=== PATIENT | male | born 1935 | race Caucasian/White ===

== ENCOUNTER → 2016-07-08 | Outpatient (CLI) | payer OTHER, MEDICARE ==
--- NOTE | 2016-07-08 16:02 | DX ---
PA and Lateral Chest July 08, 2016 Clinical Indications: Cough and possible aspiration in a 80-year-old male. Comparison: November 21, 2004. Findings: No focal pulmonary consolidation. Minimal basilar opacities are probably atelectasis. Pe ribronchial thickening is identified. There is hyperexpansion seen, with flattening of the hemidiaph ragms noted. A prominent pericardial fat pad is suspected. The heart size and pulmonary vascularity are normal. Pleural surfaces and bony thorax are negative for acute abnormality. Impressions 1. Suspect airways disease. 2. Basilar opacities are probably atelectasis. 3. See above report for additional findings.
== END ==
LOC: BMCIMAGING 14:00
PROVIDERS: ATTEND Internal Medicine
DX: T17.908A Unspecified foreign body in respiratory tract, part unspecified causing other injury, initial encounter (principal); R05 Cough; R91.8 Other nonspecific abnormal finding of lung field

== ENCOUNTER 2018-08-25 17:42 | Inpatient (IN) | payer OTHER, MEDICARE ==
--- NOTE | 2018-08-25 17:56 | EDPHY ---
H & P Time Seen by Provider: 08/25/18 17:48 HPI/ROS: Chief complaint. Fall, decreased level of consciousness, low oxygen saturation HPI. Patient is an 82-year-old male and history is provided by his . She tells me he fell this morning struck his head. She is not sure about loss of consciousness. Since that time he has had decreased level of consciousness. She drove to the emergency department could not get the patient out of the car and it took multiple people to get him out. He was found to have an oxygen saturation of about 70% on room air. He is on normally on oxygen because of pulmonary hypertension. He recently had skin cancer surgery removed on his forehead. She tells me he has not been sick recently. No fever cough. He apparently fell several days ago as well. She says that he was may be clutching his chest in the car on the ride over. No vomiting or diarrhea. No complaint of abdominal pain. ROS 10 systems were reviewed and negative with the exception of the elements mentioned in the history of present illness Past Medical/Surgical History: COPD, pulmonary hypertension, dementia Social History: , nonsmoker, no alcohol Physical Exam: General Appearance: Arousable but non communicative well-developed male moderate distress. Vital signs significant for initial O2 saturation 70%. Temperature 38.4 degrees Eyes: Pupils equal and round no pallor or injection. ENT, no hemotympanum or Rosado sign. No oral pharyngeal or dental trauma. Forehead skin cancer surgery. No infection. Not bleeding Respiratory: There are no retractions, lungs are clear to auscultation. Cardiovascular: Regular rate and rhythm. Gastrointestinal: Abdomen is soft and nontender, no masses, bowel sounds normal. Neurological: Arousable. Moves all extremities. Skin: Warm and dry, no rashes. Musculoskeletal: Possible cervical spine tenderness Extremities symmetrical, full range of motion. Psychiatric: Patient is oriented X 0, there is no agitation. Constitutional: Initial Vital Signs Temperature (C) 38.4 C H 08/25/18 17:50 Heart Rate 72 08/25/18 17:50 Respiratory Rate 18 08/25/18 17:50 Blood Pressure 165/84 H 08/25/18 17:50 O2 Sat (%) 90 L 08/25/18 17:50 O2 Delivery Mode Non-Rebreather Mask O2 (L/minute) 10 Allergies/Adverse Reactions: Penicillins Allergy (Verified 08/25/18 17:57) Home Medications: Medication Instructions Recorded Unobtainable 08/25/18 Medical Decision Making - Diagnostics EKG Interpretation: EKG interpreted by me shows normal sinus rhythm normal axis. Interventricular conduction delay. ST-T depression anterior leads. No ST elevation. Rate 69 No previous EKGs for comparison Imaging Results: Imaging Impressions Chest X-Ray 08/25/18 17:56 Impression: Cardiomegaly with findings compatible with congestive heart failure. Cervical Spine CT 08/25/18 17:57 Impression: 1. No acute abnormality seen about the cervical spine. 2. Anterior cervical fusion from C4 through C6 appears to be intact. 3. Degenerative disk disease lower cervical spine below the fusion. 4. 2-3 mm of anterior subluxation of C7 on T1 secondary to facet hypertrophy.. Findings discussed with Juliocesar Loomis M.D. at 19:06 hour, 08/25/2018. Head CT 08/25/18 17:57 Impression: 1. Moderate atrophy. 2. No hemorrhage, mass effect, or definite acute peripheral infarct. 3. Mild to moderate nonspecific hypodensities in the white matter of bilateral cerebral hemispheres. Differential diagnosis includes microvascular ischemic disease, post-infectious/post-inflammatory sequela, atypical demyelinating disease, or migraine-related sequela. Small white matter lacunar infarcts may also have this appearance. 4. Moderate amount of cerumen right external auditory canal. If symptoms worsen, additional imaging may be necessary. Findings discussed with Juliocesar Loomis M.D. at 19:06 hour, 08/25/2018. Chest x-ray interpreted by me CHF versus pneumonia CT head without contrast interpreted by me and discussed with Dr. Nunes shows no evidence of trauma Cervical spine CT interpreted by me and discussed with Dr. Nunes shows no evidence for trauma Procedures: IV normal saline, monitor, supplemental oxygen Septic workup IV Rocephin and doxycycline ED Course/Re-evaluation: Re-evaluation 7:10 p.m.. Patient is stable. In patient, his , and I discussed imaging and lab results. We discussed treatment plan including recommendation for admission. She expresses understanding and agreement I consulted discussed case with Dr. Callaway, hospitalist, who agrees to the admission Differential Diagnosis: Chest x-ray read as CHF by Radiology. However the patient has a fever and I believe he has pneumonia. He fell and hit his head and has decreased level of consciousness afterwards. I considered closed head injury, intracranial bleeding as well as cervical spine injury. Patient's lactate is normal. No evidence for sepsis - Data Points Laboratory Results: Laboratory Results 08/25/18 18:00 08/25/18 18:00 08/25/18 08/25/18 08/25/18 18:36 18:06 18:00 WBC RBC Hgb Hct MCV MCH MCHC RDW Plt Count MPV Neut % (Auto) Lymph % (Auto) [place] % (Auto) Eos % (Auto) Baso % (Auto) Nucleat RBC Rel Count Absolute Neuts (auto) Absolute Lymphs (auto) Absolute Monos (auto) Absolute Eos (auto) Absolute Basos (auto) Absolute Nucleated RBC Immature Gran % Immature Gran # PT 13.8 SEC SEC (12.0-15.0) INR 1.10 (0.83-1.16) APTT 28.8 SEC SEC (23.0-38.0) VBG Lactic Acid 1.8 mmol/L mmol/L (0.7-2.1) Sodium Potassium Chloride Carbon Dioxide Anion Gap BUN Creatinine Estimated GFR Glucose Calcium Total Bilirubin POC Troponin I 0.00 ng/mL ng/mL (0.00-0.08) NT-Pro-B Natriuret Pep 08/25/18 08/25/18 18:00 18:00 WBC 12.75 10^3/uL H 10^3/uL (3.80-9.50) RBC 6.82 10^6/uL H 10^6/uL (4.40-6.38) Hgb 15.5 g/dL g/dL (13.7-17.5) Hct 53.2 % H % (40.0-51.0) MCV 78.0 fL L fL (81.5-99.8) MCH 22.7 pg L pg (27.9-34.1) MCHC 29.1 g/dL L g/dL (32.4-36.7) RDW 21.9 % H % (11.5-15.2) Plt Count 163 10^3/uL 10^3/uL (150-400) MPV 9.7 fL fL (8.7-11.7) Neut % (Auto) 84.2 % H % (39.3-74.2) Lymph % (Auto) 9.6 % L % (15.0-45.0) [place] % (Auto) 4.9 % % (4.5-13.0) Eos % (Auto) 0.5 % L % (0.6-7.6) Baso % (Auto) 0.4 % % (0.3-1.7) Nucleat RBC Rel Count 0.0 % % (0.0-0.2) Absolute Neuts (auto) 10.73 10^3/uL H 10^3/uL (1.70-6.50) Absolute Lymphs (auto) 1.23 10^3/uL 10^3/uL (1.00-3.00) Absolute Monos (auto) 0.63 10^3/uL 10^3/uL (0.30-0.80) Absolute Eos (auto) 0.06 10^3/uL 10^3/uL (0.03-0.40) Absolute Basos (auto) 0.05 10^3/uL 10^3/uL (0.02-0.10) Absolute Nucleated RBC 0.00 10^3/uL 10^3/uL (0-0.01) Immature Gran % 0.4 % % (0.0-1.1) Immature Gran # 0.05 10^3/uL 10^3/uL (0.00-0.10) PT INR APTT VBG Lactic Acid Sodium 137 mEq/L mEq/L (135-145) Potassium 4.6 mEq/L mEq/L (3.5-5.2) Chloride 101 mEq/L mEq/L (97-110) Carbon Dioxide 24 mEq/l mEq/l (22-31) Anion Gap 12 mEq/L mEq/L (6-14) BUN 30 mg/dL H mg/dL (7-23) Creatinine 0.9 mg/dL mg/dL (0.7-1.3) Estimated GFR > 60 Glucose 136 mg/dL H mg/dL (70-100) Calcium 9.4 mg/dL mg/dL (8.5-10.4) Total Bilirubin 1.1 mg/dL mg/dL (0.1-1.4) POC Troponin I NT-Pro-B Natriuret Pep 908 pg/mL H pg/mL (0-450) Medications Given: Ceftriaxone Sodium/Dextrose (Rocephin 1 Gm (Premix)) 50 mls @ 100 mls/hr IV EDNOW ONE PRN Reason: Protocol Stop: 08/25/18 19:37 Last Admin: 08/25/18 19:14 Dose: 50 mls Discontinued Medications Lorazepam (Ativan Injection) 1 mg IVP ONCE ONE Stop: 08/25/18 18:27 Last Admin: 08/25/18 18:27 Dose: 1 mg Point of Care Test Results: Chemistry 08/25/18 18:06 POC Troponin I 0.00 ng/mL ng/mL (0.00-0.08) Departure - Departure Disposition: [facility] Inpatient Acute Clinical Impression: Pneumonia Qualifiers: Pneumonia type: due to unspecified organism Laterality: bilateral Lung location : lower lobe of lung Qualified Code(s): J18.1 - Lobar pneumonia, unspecified organism Condition: Fair
--- NOTE | 2018-08-25 18:03 | CPEKG ---
Test Reason : OPEN Blood Pressure : / mmHG Vent. Rate : 069 BPM Atrial Rate : 070 BPM P-R Int : 206 ms QRS Dur : 150 ms QT Int : 423 ms P-R-T Axes : 054 152 -28 degrees QTc Int : 454 ms Sinus rhythm Supraventricular bigeminy Nonspecific intraventricular conduction delay Borderline ST depression, anterior leads ST depression V1-V3, suggest recording posterior leads Confirmed by Juliocesar Loomis ([id number]) on 08/25/2018 6:03:07 PM Referred By: Juliocesar Loomis Confirmed By:Juliocesar Loomis
[2018-08-25] MEDS ORDERED: LORazepam 2 MG/ML INJ IVP ONE (18:26)
[2018-08-25 18:31] LABS: PLATELET COUNT 163 10^3/uL (150-400)
[2018-08-25 18:32] LABS: INR 1.1 (0.83-1.16); PROTIME(PATIENT) 13.8 SEC (12.0-15.0)
[2018-08-25] MEDS ORDERED: OXYCODONE/APAP 5/325 TAB PO ONE (19:16)
[2018-08-25] MEDS ORDERED: DOXYCYCLINE INJ 100 MG in NS 250 ML IV ONE (19:30)
[2018-08-25] MEDS ORDERED: ONDANSETRON 4 MG/2 ML VIAL IVP PRN (20:13)
[2018-08-25] MEDS ORDERED: ONDANSETRON DISINTEGRATING 4 MG TAB PO PRN (20:13)
[2018-08-25] MEDS ORDERED: OXYCODONE/APAP 5/325 TAB PO PRN (20:13)
[2018-08-25] MEDS ORDERED: ACETAMINOPHEN 325 MG TAB PO PRN (20:13)
[2018-08-25] MEDS ORDERED: NS 1,000 ML IV SCH (20:15)
--- NOTE | 2018-08-25 20:55 | GHP ---
[f rep st] HISTORY AND PHYSICAL DATE OF ADMISSION: 08/25/2018 HISTORY OF PRESENT ILLNESS: Mr. Busby is an 82-year-old gentleman with history of pulmonary hypert ension and dementia as well as chronic pain on continuous narcotics, who presents with a fall. It so unds like he had a fall on Friday and then a fall again this morning. It sounds like at baseline he does not recognize his of 58 years. He needs some help with his ADLs. She took him to lunch to day. They live in [place]. It is very difficult to get him in and out of the car, but she kriby anderson achieved it, and then he had another fall, so she brought him to the emergency department where he was found to be febrile. It sounds like over the last 5 years, he has had significant decline starting with a cervical spine s urgery during which he had 9 hours of anesthesia and has been on oxygen and not particularly recovere d since. He recently saw his lounge car attendant at [facility] and his pulmonary pressures had decrea sed from the 90s down to the 70s on the medications that he takes. He has not had cough, sputum. His says he is using more Kleenex than usual. He has not had miriam rrhea or rash on his skin. He did recently have a melanoma resected from his forehead with [facility] plastic surgery. REVIEW OF SYSTEMS: Complete 10-point review of systems conducted, negative except as in the HPI. PAST MEDICAL HISTORY: 1. Pulmonary hypertension, sounds like it is primary, on some vasodilators. 2. Dementia with fairly significant impairment. 3. Cervical spine disease. 4. Diabetes. 5. Hyperlipidemia. 6. Chronic narcotic use with dependency, recently taken off OxyContin. 7. Low back pain. ALLERGIES: Penicillin. HOME MEDICATIONS: List is pending at this time. 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 He has been for 58 years . Not an alcohol drinker at this point in time. Does not smoke cigarettes. FAMILY HISTORY: Parents . PHYSICAL EXAM: VITAL SIGNS: Temp 38.4, blood pressure 165/84, pulse 72, breathing 18 times a minute , 90% on 5 L. GENERAL: No acute distress. He is minimally interactive in our evaluation. HEENT: Sclerae anicteric. Oropharynx clear. Mucous membranes are moist. NECK: Supple. There is JVD to t he angle of the jaw. LUNGS: He is poorly compliant with the exam, but shows scattered crackles bila terally without focal areas of decreased breath sounds. HEART: S1, S2 with a thick split S2. ABDOM EN: Soft, nontender, nondistended. LOWER EXTREMITIES: Trace edema bilaterally. Calves are nontend er. SKIN: Without rash. NEUROLOGIC: Nonfocal. LABS: Sodium 137, potassium 4.6, chloride 101, bicarb 24, BUN 30, creatinine 0.9, glucose 136. BNP is 908 with no prior. Point of care troponin is normal. Lactate is 1.8. INR is 1.1. White count 1 2.8, hematocrit 53, platelets are 163,000. Chest x-ray interpreted by me shows bilateral airspace disease, CHF versus viral pneumonia. EKG interpreted by me shows right axis deviation, right bundle branch block pattern. There are ST de pressions across on the precordial leads. This is consistent with pulmonary hypertension. Head CT shows microvascular gliosis. Cervical spine CT shows 2-3 mm anterior subluxation of C7 on T1 secondary to facet hypertrophy. Fusi on is intact. No acute abnormality. I discussed the case with Dr. uJliocesar Loomis. ASSESSMENT/PLAN: 82-year-old gentleman with multiple medical problems including dementia and pulmona ry hypertension, presents with fever, possible pneumonia. 1. Pneumonia. This is probably a viral pneumonia. I have written for a viral respiratory panel. S tart him on ceftriaxone and doxycycline. We will continue oxygen support, have drawn blood cultures. 2. Pulmonary hypertension. Maintain euvolemia. I will give him some IV fluids now. By BUN and cre atinine he is dry. I will restart his medications when they have been reconciled. 3. Dementia. He is on narcotics and he is also on Flexeril. These are not great medicines for some one such as him, but we can continue these as prescribed. 4. Code status. I have suggested that he may benefit from a do not resuscitate. It sounds like the has not really given this time and thought, but is thinking about it now. 5. Leukocytosis, likely secondary viral infection. DISPOSITION: Inpatient status. /[id number]/MODL
[2018-08-25] MEDS ORDERED: CARBOXYMETHYLCELLULOSE 1% 0.4 ML DROPERETTE EACHEYE PRN (22:04)
[2018-08-25] MEDS ORDERED: ZOLPIDEM TARTRATE 5 MG TAB PO PRN (22:04)
[2018-08-25] MEDS ORDERED: ACETAMINOPHEN PO SCH (22:15)
[2018-08-25] MEDS ORDERED: OXYCODONE HCL PO SCH (22:15)
[2018-08-25] MEDS: INSULIN GLARGINE 100 UNITS/ML UNIT SC SCH (23:39)
[2018-08-25] MEDS: PREGABALIN 100 MG CAP PO SCH (23:39)
[2018-08-25] MEDS: MEMANTINE HCL 5 MG TAB PO SCH (23:40)
[2018-08-25] MEDS: oxyCODONE IR 5 MG TAB PO SCH (23:40)
[2018-08-25] MEDS: OXYCODONE/APAP 5/325 TAB PO SCH (23:40)
[2018-08-25] MEDS: DOCUSATE SODIUM 100 MG CAP PO SCH (23:41)
[2018-08-26] MEDS: Olodaterol Hcl [Striverdi Respimat] IH SCH ×2 (00:16→08:51)
[2018-08-26] MEDS: OXYCODONE/APAP 5/325 TAB PO SCH ×4 (04:28→22:39)
[2018-08-26] MEDS: oxyCODONE IR 5 MG TAB PO SCH ×4 (04:29→22:41)
[2018-08-26 05:37] LABS: PLATELET COUNT 128 10^3/uL (150-400)
[2018-08-26] MEDS: BECLOMETHASONE QVAR 80 REDIHALER 120 INH/10.6 GM MDI IH SCH ×2 (08:52→20:32)
[2018-08-26] MEDS: CHOLECALCIFEROL VIT D3 2,000 UNITS TAB/CAP PO SCH (09:53)
[2018-08-26] MEDS: PREGABALIN 100 MG CAP PO SCH ×2 (09:53→22:07)
[2018-08-26] MEDS: MEMANTINE HCL 5 MG TAB PO SCH ×2 (09:53→22:06)
[2018-08-26] MEDS: MULTIVITAMINS 1 EACH TAB PO SCH (09:53)
[2018-08-26] MEDS: OMEGA-3 FATTY ACIDS 1,000 MG CAP PO SCH (09:53)
[2018-08-26] MEDS: TADALAFIL 20 MG TABLET PO SCH (09:54)
[2018-08-26] MEDS: POTASSIUM CL 10 MEQ TAB PO SCH (09:54)
[2018-08-26] MEDS: CYANO/VITAMIN B12 1000 MCG TAB PO SCH (09:54)
[2018-08-26] MEDS: ASPIRIN EC 81 MG TAB PO SCH (09:54)
[2018-08-26] MEDS: PANTOPRAZOLE SODIUM 40 MG TAB PO SCH (09:54)
[2018-08-26] MEDS: DOCUSATE SODIUM 100 MG CAP PO SCH ×2 (09:57→22:05)
[2018-08-26] MEDS: LIDOCAINE 4%/MENTHOL 1% PATCH TD SCH (09:57)
[2018-08-26] MEDS: VITAMIN E ACETATE PO SCH (10:00)
[2018-08-26] MEDS: ENOXAPARIN 40 MG/0.4 ML SYR SC SCH (11:18)
[2018-08-26] MEDS ORDERED: D50W 25 GM/50 ML SYR IVP PRN (11:39)
--- NOTE | 2018-08-26 11:40 | HOSPPROG ---
Hospitalist Progress Note Assessment/Plan: 82 year old male with pmh of pulonary hypertension, advanced dementia, HLD, HTN , low back pain admitted wtih weakness thought to be due to PNA Acute on chronic hypoxemic respiratory failure- uses two liters at home now up to 10 liters to maintain sats. Started on rocephin and doxy for possible PNA, resp PCR panel and blood cultures are NGTD. Procal is equivocal. Did have a mild leukocytosis to 12 on admit that is now down to 10. Exam with no real wheezes or crackles. repeat this morning concerning for possible CHF etiology for hypoxia. -cont abx -obtain echo -oxygen PRN -get records from [facility] -depending on echo may involve Pulmonology Pulmonary HTN- takes opsumit at home along with striverdi. This has been restarted today. Monitor fluid status closely. Dm- on lantus, will add ss and schedule BG checks Dementia- frequent reorientation. Mimimize narcotics and muscle relaxers Chronic pain- cont home meds for now. Low MVC- check iron studies. may be iron deficient. PPX- Lovenox Fluids-taking adequate oral Lytes- WNL Nutrition- regular Subjective: no complaints. Objective: Vital Signs Temp Pulse Resp BP Pulse Ox 36.1 C 65 18 99/56 L 95 08/26/18 11:09 08/26/18 11:09 08/26/18 11:09 08/26/18 11:09 08/26/18 11:09 Microbiology 08/25/18 19:55 Respiratory Panel (PCR) - Final Nasal, Sinus - Swab No Organism Detected By Pcr Laboratory Results 08/26/18 05:00 08/26/18 05:00 08/25/18 08/26/18 08/27/18 05:59 05:59 05:59 Intake Total 954 Balance 954 PT 13.8 SEC (12.0-15.0) 08/25/18 18:00 INR 1.10 (0.83-1.16) 08/25/18 18:00 - Physical Exam Constitutional: no apparent distress, appears nourished, not in pain Eyes: PERRL, anicteric sclera, EOMI Ears, Nose, Mouth, Throat: moist mucous membranes, hearing normal, ears appear normal, no oral mucosal ulcers Cardiovascular: regular rate and rhythym, no murmur, rub, or gallop Respiratory: reduced air movement, inspiratory crackles Gastrointestinal: normoactive bowel sounds, soft, non-tender abdomen, no palpable masses Genitourinary: no bladder fullness, no bladder tenderness, no renal bruits Skin: no rashes or abrasions, no fluctuance, no induration Musculoskeletal: full muscle strength, no muscle tenderness, normal joint ROM Neurologic: AAOx3, sensation intact bilaterally Psychiatric: interacting appropriately, not anxious, not encephalopathic, thought process linear Lymph, Heme, Immunologic: no cervical LAD, no supraclavicular LAD ICD10 Worksheet Patient Problems: Problems Problem Status Onset Pneumonia Acute
[2018-08-26] MEDS: FLUTICASONE NASAL 120 SPRAYS/16 GM MDI EACHNARE SCH (11:42)
--- NOTE | 2018-08-26 13:27 | ECHO ---
[email or web address] [address] [address] Main: [phone] Echocardiography Examination Transthoracic Name: BERE CANNON MR#: [id number] Study Date: 08/26/2018 Study Time: 12:21 PM Date of : 1935 Age: 82 year(s) Height: 177.8 cm (70 in.) Weight: 78.47 kg (173 lb.) BSA: 1.96 m2 Gender: Male Examination: Echo Contrast: Image Quality: Adequate Rhythm: Heart Rate: BP: 99 mmHg/56 mmHg Indication: acute hypoxemia, concern for cardiac etiology Procedure Staff Referring Physician: Sternman: Christine Avila [facility] Reading Physician: Masood Vega MD Requesting Provider: Ordering Physician: Shan Woodward Indication: acute hypoxemia, concern for cardiac etiology Measurements Chambers AV/MV Label Value Normal Value Label Value Normal Value IVSd, 2D 1.3 cm (0.6cm - 1.1cm) AV PGmax 11 mmHg LVDd, 2D 5.6 cm (4.2cm - 5.9cm) AV PGmean 7 mmHg LVDs, 2D 3.3 cm (2.1cm - 4cm) AV Vmax 1.66 m/s LVOT PGmean 1 mmHg CAROL D (continuity eq. 1.4 cm2 LVOT Vmean 0.58 m/s VTI) LVOTd 2 cm (1.9cm - 2.1cm) MV A Vmax 0.78 m/s LVPWd, 2D 1.2 cm (0.6cm - 1cm) MV DT 306 ms RVDd, 2D 3.8 cm (1.9cm - 3.8cm) MV E' lateral 0.09 m/s LA Volume, BP 63 ml (18ml - 58ml) MV E' mean 0.07 m/s LADs, 2D 3.8 cm (3cm - 4cm) MV E' septal 0.05 m/s LAESV index, BP 32.1 ml/m2 MV E Vmax 0.91 m/s RA Area 16.7 cm2 MV E/A 1.17 Additional Vessels MV E/E' lateral 10.4 Label Value Normal Value MV E/E' mean 13 AoAsc 3.1 cm MV E/E' septal 19.5 (0.45 - 1.25) AoRoot, 2D 3.1 cm (1.4cm - 2.6cm) MV PHT 0.09 s IVC 3.2 cm (1.2cm - 2.3cm) MV PHT 91 ms MVA PHT 2.4 cm2 TV/PV Patient: BERE CANNON Study Date: 08/26/2018 Page 1 of 3 12:21 PM Label Value Normal Value RA Pressure 10 mmHg RVSP 66 mmHg TR Pmax 56 mmHg TR Vmax 3.75 m/s PV PGmax 2 mmHg PV Vmax, Caliper 0.73 m/s (0.6m/s - 0.9m/s) Conclusions Overall Conclusions: No pericardial effusion. Ejection fraction 55%. Diastolic dysfunction. Dilated right ventricle with significant pulmonary hypertension. Right ventricular systolic pressure estimated at 66 mm of mercury. Decreased right ventricular systolic function. Moderate tricuspid regurgitation. Mild mitral regurgitation. Aortic valve calcification without significant regurgitation or stenosis. Findings Left Ventricle: Left ventricle is normal in size. The EF is visually estimated to be 55 %. There is mild concentric left ventricular hypertrophy. There are no regional wall motion abnormalities. Grade II Diastolic Dysfunction. Right Ventricle: Dilated right ventricle. Left Atrium: The left atrium is grossly normal. Right Atrium: The right atrium is moderately dilated. Mitral Valve: Mitral valve appears structurally normal. Mild mitral regurgitation. No mitral valve stenosis. There is mild mitral annular calcification. Aortic Valve: Aortic leaflets are structurally normal. Trivial aortic regurgitation is present. There is no aortic stenosis. Aortic leaflets exhibit mild to moderate calcification. Tricuspid Valve: Tricuspid valve leaflets are structurally normal. Moderate tricuspid regurgitation. No tricuspid valve stenosis. Right Ventricular systolic pressure is measured at 66 mmHg. Pulmonary artery pressure is moderately to severely increased. Pulmonic Valve: Pulmonic leaflets are structurally normal. Trivial pulmonic valve regurgitation is present. Aorta: The aortic root size in 2D measures 3.1 cm. The ascending aorta measures 3.1 cm. Aorta Measurements AoRoot, 2D is 3.1 cm. IVC: The inferior vena cava is dilated. Exam Details Procedure Ordered: Echo Procedure Status: Routine study Image Quality: Adequate Facility Location: Cardiac Echo 1 Patient: BERE CANNON Study Date: 08/26/2018 Page 2 of 3 12:21 PM (No Signature Object) Patient: BERE CANNON Study Date: 08/26/2018 Page 3 of 3 12:21 PM [id number]
[2018-08-26] MEDS ORDERED: OLANZapine 10 MG/2 ML VIAL IM ONE (14:52)
[2018-08-26] MEDS ORDERED: LORazepam 2 MG/ML INJ IVP ONE (14:56)
[2018-08-26] MEDS: INSULIN LISPRO 100 UNIT/ML SC SCH ×2 (15:35→17:23)
--- NOTE | 2018-08-26 15:47 | ASMTCMCOM ---
CM Note CM Note Notes: Chart Review for Discharge Planning: Patient is 82 year old male who presented to [facility] ED after falling at home. His Radha of 58 years live in [place]. She drove him to the ED and provided history, she reported he also fell a few days ago. Medical history includes pulmonary hypertension, COPD, chronic O2 use, dementia (signifcant impairment), Cervical Spine Disease, Chronic narcotic use with dependency, Diabetes, Hyperlipidemia. ED assessment: fever, pneumonia. The patient doesn't have history of treatment at [facility]. ASSISTANT [employer] C[employer] MANAGER & PT ordered, currently pending assessment. CM to follow. Date Signed: 08/26/2018 03:44 PM Electronically Signed By:Janie Marroquin
[2018-08-26] MEDS ORDERED: FUROSEMIDE 40 MG/4 ML VIAL IVP ONE (17:04)
[2018-08-26] MEDS: AZITHROMYCIN IV 500 MG in NS 250 ML IV SCH (17:15)
--- NOTE | 2018-08-26 18:27 | PDMN ---
Medical Necessity Medical necessity: Pt meets IP criteria per MD; est los >2 mn for eval/tx of possible viral pneumonia vs CHF w/tachypnea & hypoxia (O2 86% on 6L via NC, requiring 10L via NRB to maintain sats >90%) s/p recent falls; admit for further workup/monitoring, IV abx; comorbid advanced age, dementia, pulmonary htn, diabetes, chronic pain w/narcotic use; per H&P & order 08/25/18
--- NOTE | 2018-08-26 18:28 | GCON ---
[f rep st] CONSULTATION PULMONARY CRITICAL CARE CONSULTATION. DATE OF CONSULTATION: 08/26/2018 REASON FOR CONSULTATION: Pneumonia, acute respiratory failure. HISTORY: The patient is an 82-year-old gentleman with a history of dementia and severe pulmonary hypertension. He has chronic pain and is on chronic narcotics at home. He has fallen several times over the last few days. He was at dinner last night and apparently fell or slumped over. It was difficult to get him up and he was thus brought to the emergency department. In the ED he is found to be somnolent and hypoxemic. Room air saturations initially were approximately 70%. Evaluation initially focused on his fall. Cervical spine CT scan showed no acute abnormality or fracture. The previous cervical fusion was intact. DJD was noted. CT scan of the head showed no acute disease. Atrophy was noted with some white matter ischemic changes as well. Chest x-ray showed increased markings consistent with either pneumonia/ pneumonitis or congestive heart failure. White blood cell count was mildly elevated. He was felt to have pneumonia. He was given ceftriaxone and admitted to a medical-surgical bed. Today, he is transferred to the intensive care unit secondary to increasing oxygen requirements. Oxygen initially on admission was at 5 or 6 L. He required 10 L earlier today and is transferred to the intensive care unit on a 15 L oxy mask. He appears to be in no respiratory distress, however. He is not significantly tachypneic. On a non-rebreather mask oxygen saturations are in the mid 90s. He is not coughing. He appears to deny any chest pain. PAST MEDICAL HISTORY: Remarkable for dementia, depression, low testosterone, gastroesophageal reflux disease, fluid retention on Lasix at 20 mg per day, COPD , PAH on Adcirca and followed at [facility], type 2 diabetes mellitus on metformin and low-dose long-acting insulin, chronic pain and narcotic use, and rhinitis. Multiple outpatient medications are as listed in his MAR. SOCIAL HISTORY: The patient lives in [place]. He is . He is apparently unable to recognize his at this point secondary to his dementia. 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 FAMILY HISTORY: Noncontributory. DRUG ALLERGIES: Penicillins. REVIEW OF SYSTEMS: Unobtainable from the patient. A 10-point review of systems is negative except as noted in the HPI and past medical history. PHYSICAL EXAMINATION: GENERAL: Reveals an elderly gentleman who is currently calm. VITAL SIGNS: Blood pressure is 110/50, heart rate 85 with sinus rhythm on the monitor. Respiratory rate is 20. He is on a non-rebreather mask with saturations in the mid 90s. He is afebrile. HEENT: Remarkable for the non- rebreather mask being in place. Mucous membranes are somewhat dry. Jugular venous pressure is estimated to be approximately 8-10 cm of water pressure. CHEST: Reveals decreased breath sounds bilaterally. The expiratory phase is somewhat prolonged. There are few scattered rales at the bases, right greater than left. There are no consolidative changes. There are no obvious rhonchi but he has a hard time taking deep breaths for me on command. HEART: Regular in rate and rhythm. A systolic murmur is present. No gallop is appreciated. P2 does appear to be increased. ABDOMEN: Soft, nontender. There is no organomegaly. No Delatorre catheter is in place. EXTREMITIES: Remarkable for trace plus edema. There are no cords. Tenderness is difficult to assess. EXTREMITIES: Remarkable for restraining mitts being in place on both hands. He moves all extremities equally. PSYCH: Mentation is difficult to assess. He has little in the way of verbal responses. He will look to voice. IMAGING: Chest x-ray was reviewed on the PACS system. Compared to his study on admission. There are areas of increased interstitial markings, perhaps slightly worse than yesterday. These are more significant on the right and at the left base. The heart size is generous. Possible emphysematous changes are noted in the upper lung zones. LABORATORY: White blood cell count is 10,400, hematocrit 47.6. PT and PTT were normal on admission, lactate was normal. Basic metabolic panel is within normal limits. Procalcitonin is elevated at 0.37. Troponin is negative. BNP was elevated at 908. ASSESSMENT: 1. Presumed pneumonia. This appears to be a community-acquired process. He is being treated with azithromycin and Rocephin. Congestive heart failure/mild pulmonary edema is also possible. 2. Chronic obstructive pulmonary disease/emphysema. The patient does carry this diagnosis and was on inhalers. Bronchopulmonary therapies will be continued. Nebulized bronchodilator treatments will be added. He is not wheezing at this point. Parenteral steroids will not be added at this point in time. 3. Pulmonary hypertension. On Adcirca. Severe by report, with recent reported right ventricular systolic pressures at [facility] in the 70-90 range. 4. Dementia. The patient does have relatively severe dementia. He has been somewhat agitated, confused, and is at great risk to pull out tubes and lines. Restraints will be needed. 5. Diabetes mellitus. Glucoses are currently within normal limits. Long- acting insulin will be continued. Sliding scale insulin will be given. Metformin will be held for now. 6. History of chronic pain. His outpatient oxycodone regimen will be continued. 7. Do not resuscitate per his advanced directives. PLAN AND RECOMMENDATIONS: The patient will be kept in the intensive care unit. Oxygen will be continued. BiPAP support will be given if needed. Arterial blood gas will be checked. Chest x-ray will be followed. Current antibiotics will be continued. DuoNeb will be added to his regimen. His usual inhalers will be continued, but it may be difficult for him to coordinate these currently. Respiratory therapy will help. Lasix will be given 40 mg x1. His usual outpatient medications including a PPI and tadalafil for pulmonary hypertension will be continued. Further benzodiazepines will be avoided if possible. Low-dose morphine can be considered for shortness of breath and agitation. Precedex may be a reasonable drug as well as it does not significantly suppress respiratory status. Further plans and recommendations will be made based on his progress over the next 12-24 hours. /[id number]/MODL MTDD
[2018-08-26] MEDS: IPRATROPIUM/ALBUTEROL 3 ML DEYVIAL IH SCH (20:33)
[2018-08-26] MEDS ORDERED: NS 1,000 ML IV ONE (20:36)
[2018-08-26] MEDS ORDERED: NS BOLUS 1000 ML IV ONE (21:00)
[2018-08-26] MEDS: INSULIN GLARGINE 100 UNITS/ML UNIT SC SCH (22:02)
[2018-08-26] MEDS: ATORVASTATIN CALCIUM 20 MG TAB PO SCH (22:05)
[2018-08-26] MEDS: PATCH REMOVAL 1 EA PATCH TD SCH (22:06)
[2018-08-27] MEDS ORDERED: HALOPERIDOL LACT 5 MG/ML INJ IVP ONE (04:43)
[2018-08-27] MEDS ORDERED: HALOPERIDOL LACT 5 MG/ML INJ ONE (04:45)
[2018-08-27] MEDS: oxyCODONE IR 5 MG TAB PO SCH ×3 (05:06→17:35)
[2018-08-27] MEDS: OXYCODONE/APAP 5/325 TAB PO SCH ×3 (05:06→17:35)
[2018-08-27] MEDS: DEXMEDETOMIDINE HCL 400 MCG in NS 100 ML IV PRN ×5 (05:26→23:48)
[2018-08-27] MEDS: IPRATROPIUM/ALBUTEROL 3 ML DEYVIAL IH SCH ×4 (06:38→19:56)
[2018-08-27 08:17] LABS: PLATELET COUNT 118 10^3/uL (150-400)
[2018-08-27] MEDS: INSULIN LISPRO 100 UNIT/ML SC SCH ×3 (08:25→18:20)
[2018-08-27] MEDS: AZITHROMYCIN IV 500 MG in NS 250 ML IV SCH (09:47)
[2018-08-27] MEDS: BECLOMETHASONE QVAR 80 REDIHALER 120 INH/10.6 GM MDI IH SCH ×2 (11:57→19:56)
[2018-08-27] MEDS: FLUTICASONE NASAL 120 SPRAYS/16 GM MDI EACHNARE SCH (11:57)
[2018-08-27] MEDS: Olodaterol Hcl [Striverdi Respimat] IH SCH (11:59)
[2018-08-27] MEDS: DOCUSATE SODIUM 100 MG CAP PO SCH ×2 (13:21→21:42)
[2018-08-27] MEDS: CYANO/VITAMIN B12 1000 MCG TAB PO SCH (13:21)
[2018-08-27] MEDS: ASPIRIN EC 81 MG TAB PO SCH (13:21)
[2018-08-27] MEDS: LIDOCAINE 4%/MENTHOL 1% PATCH TD SCH (13:21)
[2018-08-27] MEDS: CHOLECALCIFEROL VIT D3 2,000 UNITS TAB/CAP PO SCH (13:21)
[2018-08-27] MEDS: PREGABALIN 100 MG CAP PO SCH ×2 (13:22→21:42)
[2018-08-27] MEDS: TADALAFIL 20 MG TABLET PO SCH (13:22)
[2018-08-27] MEDS: VITAMIN E ACETATE PO SCH (13:22)
[2018-08-27] MEDS: OMEGA-3 FATTY ACIDS 1,000 MG CAP PO SCH (13:23)
[2018-08-27] MEDS: PANTOPRAZOLE SODIUM 40 MG TAB PO SCH (13:23)
[2018-08-27] MEDS: POTASSIUM CL 10 MEQ TAB PO SCH (13:23)
[2018-08-27] MEDS: MEMANTINE HCL 5 MG TAB PO SCH ×2 (13:23→21:41)
[2018-08-27] MEDS: MULTIVITAMINS 1 EACH TAB PO SCH (13:23)
[2018-08-27] MEDS: ENOXAPARIN 40 MG/0.4 ML SYR SC SCH (13:25)
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
--- NOTE | 2018-08-27 15:05 | PDINTPN ---
[facility] Progress Note Assessment/Plan: Assessment: Acute respiratory failure. Stable since admission. On 6 L. Bronchopneumonia cannot be excluded and he is being treated for community-acquired infection. COPD/emphysema: Contributing certainly to the above. On bronchodilator medications. Pulmonary hypertension: Severe, on Adcirca. He is followed at [facility] for this. Recent pressures 70, down from 90 previously by report. On Adcirca. Dementia. Severe. Unable to recognize his of greater than 50 years at this point. On Precedex. Hypotension: Was hypotensive last night. This was associated with the initiation of Precedex. He received several L of fluid. Better now regarding his blood pressures however this may have contributed to increased congestive heart failure picture on x-ray today. Diabetes mellitus: On sliding scale and long-acting insulin. Glucoses are well controlled. DVT prophylaxis: On enoxaparin. GI: On pantoprazole Nutrition: Eating. Disposition: Likely SNF. His was caring for him despite the progressive dementia. She may not be able to do this for much longer. Palliative care consultation requested. Events directives: No cor/DNR Plan: Continue care in the intensive care unit will be maintained. Precedex will be continued for his agitation but will be weaned as much as possible. Avoid benzodiazepines. Can use Haldol if needed. Lasix will be repeated at 20 mg today. We want to avoid over-diuresis in light of his severe pulmonary hypertension. Antibiotics and bronchodilators will be continued. Palliative care consultation tomorrow. Follow laboratory, chest x-ray, clinical status. 35 min of critical care time spent directly with the patient. Discussed with the patient's , hospitalist, RT, nursing, and the ICU multi disciplinary team. Subjective: Restless at times, sleeping at times, nonverbal. eyes closed. Objective: Vital Signs Temp Pulse Resp BP Pulse Ox 37.1 C 68 23 H 137/65 H 90 L 08/27/18 08:00 08/27/18 12:00 08/27/18 12:00 08/27/18 12:00 08/27/18 12:00 Laboratory Results 08/27/18 07:54 08/27/18 07:54 08/26/18 08/27/18 08/28/18 05:59 05:59 05:59 Intake Total 954 7437 Output Total 4080 Balance 954 387 PT 13.8 SEC (12.0-15.0) 08/25/18 18:00 INR 1.10 (0.83-1.16) 08/25/18 18:00 CXR: Increased markings bilaterally. No confluent infiltrates. Large heart. Physical Exam - Physical Exam General Appearance: mild distress, other (Nonverbal, restless at times. Mitts in place) EENT: PERRL/EOMI, other (Nasal cannula in place at 6 L.) Neck: non-tender, other (Jugular venous distention is present), No thyromegaly Respiratory: lungs clear (Anteriorly), decreased breath sounds (At bases), rales (Bibasilar rales are present, left greater than right), No rhonchi, No wheezing Cardiac/Chest: regular rate, rhythm, other (Distant heart tones. Gallop cannot be excluded. P2 appears increased) Abdomen: non-tender, soft, organomegaly (Cannot assess), No normal bowel sounds (Decreased, present) Male Genitalia: other (Delatorre catheter in place, good urine output) Skin: normal color, warm/dry Extremities: pedal edema (Trace +) Neuro/Psych: no motor/sensory deficits (Moves all extremities equally), cognition abnormalities (Unchanged, nonverbal. Restless at times) ICD10 Worksheet Patient Problems: Problems Problem Status Onset Pneumonia Acute
[2018-08-27] MEDS ORDERED: FUROSEMIDE 20 MG/2 ML VIAL IVP ONE (15:14)
--- NOTE | 2018-08-27 15:41 | ASMTCMCOM ---
CM Note CM Note Notes: Pt care discussed in rounds this morning. Pt has been taken care of by . Has history of dementia, recently multiple falls. Palliative Care order was placed and they scheduled with pt's to meet Tomorrow (Friday) at 1:00pm. CM submit referral to Emily as right now the plan will likely be to a SNF in [facility]. If pt ends up going home, [facility] does have an outpatient palliative team pricing coordinator is Renetta. PT ordered pending eval. CM to follow. Plan: TBD Date Signed: 08/27/2018 03:41 PM Electronically Signed By:CEFERINO Bernabe
[2018-08-27] MEDS: HYDROmorphONE/DILAUDID 1 MG/ML INJ IVP PRN (21:32)
[2018-08-27] MEDS: HALOPERIDOL LACT 5 MG/ML INJ IVP PRN (21:32)
[2018-08-27] MEDS: ATORVASTATIN CALCIUM 20 MG TAB PO SCH (21:42)
[2018-08-27] MEDS: PATCH REMOVAL 1 EA PATCH TD SCH (21:42)
[2018-08-27] MEDS: ORAL BALANCE GEL TUBE PO PRN (23:13)
[2018-08-28] MEDS: OXYCODONE/APAP 5/325 TAB PO SCH ×5 (01:09→22:49)
[2018-08-28] MEDS: oxyCODONE IR 5 MG TAB PO SCH ×5 (01:09→22:49)
[2018-08-28] MEDS: HALOPERIDOL LACT 5 MG/ML INJ IVP PRN ×2 (03:13→16:57)
[2018-08-28] MEDS: HYDROmorphONE/DILAUDID 1 MG/ML INJ IVP PRN ×2 (03:14→20:46)
[2018-08-28 04:36] LABS: PLATELET COUNT 140 10^3/uL (150-400)
[2018-08-28] MEDS: IPRATROPIUM/ALBUTEROL 3 ML DEYVIAL IH SCH ×4 (05:38→20:14)
[2018-08-28] MEDS: DEXMEDETOMIDINE HCL 400 MCG in NS 100 ML IV PRN ×4 (05:50→21:22)
[2018-08-28] MEDS: ORAL BALANCE GEL TUBE PO PRN (06:22)
[2018-08-28] MEDS: INSULIN LISPRO 100 UNIT/ML SC SCH ×3 (07:53→18:28)
[2018-08-28] MEDS: AZITHROMYCIN IV 500 MG in NS 250 ML IV SCH (07:58)
[2018-08-28] MEDS: ENOXAPARIN 40 MG/0.4 ML SYR SC SCH (08:53)
[2018-08-28] MEDS: ASPIRIN EC 81 MG TAB PO SCH (09:31)
[2018-08-28] MEDS: DOCUSATE SODIUM 100 MG CAP PO SCH ×2 (09:31→21:19)
[2018-08-28] MEDS: BECLOMETHASONE QVAR 80 REDIHALER 120 INH/10.6 GM MDI IH SCH ×2 (09:31→20:14)
[2018-08-28] MEDS: CYANO/VITAMIN B12 1000 MCG TAB PO SCH (09:31)
[2018-08-28] MEDS: CHOLECALCIFEROL VIT D3 2,000 UNITS TAB/CAP PO SCH (09:31)
[2018-08-28] MEDS: LIDOCAINE 4%/MENTHOL 1% PATCH TD SCH (09:32)
[2018-08-28] MEDS: Olodaterol Hcl [Striverdi Respimat] IH SCH (09:32)
[2018-08-28] MEDS: FLUTICASONE NASAL 120 SPRAYS/16 GM MDI EACHNARE SCH (09:32)
[2018-08-28] MEDS: MULTIVITAMINS 1 EACH TAB PO SCH (09:32)
[2018-08-28] MEDS: MEMANTINE HCL 5 MG TAB PO SCH ×2 (09:32→21:19)
[2018-08-28] MEDS: POTASSIUM CL 10 MEQ TAB PO SCH (09:33)
[2018-08-28] MEDS: PANTOPRAZOLE SODIUM 40 MG TAB PO SCH (09:33)
[2018-08-28] MEDS: TADALAFIL 20 MG TABLET PO SCH (09:33)
[2018-08-28] MEDS: PREGABALIN 100 MG CAP PO SCH ×2 (09:33→21:20)
[2018-08-28] MEDS: OMEGA-3 FATTY ACIDS 1,000 MG CAP PO SCH (09:33)
[2018-08-28] MEDS: VITAMIN E ACETATE PO SCH (09:34)
--- NOTE | 2018-08-28 09:54 | PDINTPN ---
Msw Progress Note Assessment/Plan: Assessment: Acute respiratory failure. Stable since admission. On 4 L. Bronchopneumonia cannot be excluded and he is being treated for community-acquired infection. Chest x-ray shows some improvement. Whether this is pulmonary edema or pneumonitis/pneumonia is difficult to say. COPD/emphysema: Contributing certainly to the above. On bronchodilator medications. Pulmonary hypertension: Severe, on Adcirca and Macitentan. He is followed at [facility] for this. Recent pressures 70, down from 90 previously by report. Dementia. Severe. Unable to recognize his of greater than 50 years at this point. Agitation: Secondary to dementia and acute illness. On relatively high-dose Precedex which is not a long-term solution. Increased agitation may be also secondary to NPO status currently and lack of adequate opiates/opiate withdrawal ? Hypotension: Secondary to Precedex initially. Better now. Diabetes mellitus: On sliding scale and long-acting insulin. Glucoses are well controlled. DVT prophylaxis: On enoxaparin. GI: On pantoprazole Nutrition: NPO secondary to sedation associated with Precedex. Will need a NG tube for oral medications at this time. Disposition: Likely SNF. His was caring for him despite the progressive dementia. She may not be able to do this for much longer. Palliative care consultation requested. Events directives: No cor/DNR Plan: Continued care in the intensive care unit will be maintained. Precedex will be continued for now but weaned throughout the day. Avoid benzodiazepines. P.r.n. Haldol can be continued. A NG tube will be placed today for his oral medications. Seroquel will be added. Risperdal or Zyprexa could be considered. Dilaudid will be given scheduled for a short period of time until oral narcotics can be re-added. Lasix will be repeated at 20 mg today. We want to avoid over-diuresis in light of his severe pulmonary hypertension. Antibiotics and bronchodilators will be continued. Palliative care consultation tomorrow. I would be happy to join if needed. Follow laboratory, chest x-ray, clinical status. 40 min of critical care time spent directly with the patient. Discussed with the patient's , hospitalist, nursing, and the ICU multi disciplinary team. Subjective: On high-dose Precedex, sedated, arouses weakly. Was following commands. Largely nonverbal Objective: Vital Signs Temp Pulse Resp BP Pulse Ox 37.0 C 79 12 111/78 86 L 08/28/18 08:00 08/28/18 07:45 08/28/18 07:45 08/28/18 07:45 08/28/18 07:45 Laboratory Results 08/28/18 04:15 08/28/18 04:15 08/27/18 08/28/18 08/29/18 05:59 05:59 05:59 Intake Total 2637 816 Output Total 2250 2450 Balance 387 -1634 PT 13.8 SEC (12.0-15.0) 08/25/18 18:00 INR 1.10 (0.83-1.16) 08/25/18 18:00 Laboratory Tests 08/28/18 04:15 Calcium 8.4 L Magnesium 1.7 Total Bilirubin 0.9 AST 20 ALT 19 L Total Protein 5.8 L CXR: Patchy bilateral infiltrates somewhat improved. Large cardiac silhouette. Physical Exam - Physical Exam General Appearance: other (Sedated, moves all extremities with stimulation, groans. Not opening eyes for me, not verbal.) EENT: PERRL/EOMI, other Neck: normal inspection Respiratory: lungs clear (Anteriorly), decreased breath sounds (At bases), rales (Scattered rales present posterior bases), No rhonchi, No wheezing Cardiac/Chest: regular rate, rhythm, No gallop Abdomen: normal bowel sounds, non-tender, soft Male Genitalia: other (Delatorre catheter in place, good urine output. Output greater than input.) Skin: normal color, warm/dry Extremities: No pedal edema Neuro/Psych: no motor/sensory deficits (Moves all extremities), cognition abnormalities (Difficult to assess secondary to Precedex sedation.) ICD10 Worksheet Patient Problems: Problems Problem Status Onset Pneumonia Acute
[2018-08-28] MEDS ORDERED: FUROSEMIDE 20 MG/2 ML VIAL IVP ONE (10:39)
[2018-08-28] MEDS ORDERED: QUEtiapine FUMARATE 25 MG TAB PO ONE (10:51)
[2018-08-28] MEDS: HYDROmorphONE/DILAUDID 1 MG/ML INJ IVP SCH ×4 (11:19→22:49)
[2018-08-28] MEDS ORDERED: LIDOCAINE 2% JELLY 20 ML (UROJECT) ONE (12:23)
--- NOTE | 2018-08-28 16:17 | ASMTCMCOM ---
CM Note CM Note Notes: CM, Palliaitve Care team, Caroline gomez [facility], and Dr. Vidal met with pt's at length to discuss care goals and options for next steps. Pt's Mechelle spoke at length of what an incredible support she has been for her over the years and how in the past five years as his dementia has progresses she has become a 24/7 caregiver without ever being able to leave the house, even to get the newspaper without him worrying. Pat reports she feels like "My Timoteo" has left many years ago and that her role now is primary caregiver. Team provided educaiton about choices of treatment moving forward and next steps appear to be that Pat will touch base with her primary care doctor and think about options. MD attempted to insert feeding tube today through his nose without success. Please see family meeting note in notes section for more detailed information. CM to continue to follow to support pt and Pat throughout hospitalization and as she faces these difficult decisions. At this time therapy is not involved. It is possible pt would SNF. They do have a son that lives in [place]. CM to follow. Plan: continue to support Pt's Mechelle. Possible revisit of choices in the next few days as pt progesses. Possible offer another family meeting if she wants. Date Signed: 08/28/2018 04:17 PM Electronically Signed By:CEFERINO Bernabe
--- NOTE | 2018-08-28 17:20 | HOSPPROG ---
Hospitalist Progress Note Assessment/Plan: 82 year old male with pmh of pulonary hypertension, advanced dementia, HLD, HTN , low back pain admitted wt weakness thought to be due to PNA Acute on chronic hypoxemic respiratory failure- uses two liters at home now up to 10 liters to maintain sats. Started on rocephin and doxy for possible PNA, resp PCR panel and blood cultures are NGTD. Procal is equivocal. Did have a mild leukocytosis to 12 on admit that is now normalized. Exam with no real wheezes or crackles. repeat cxr this morning concerning for possible CHF etiology for hypoxia. -cont abx -oxygen PRN -lasix redosed today -caution with fluids Pulmonary HTN- takes opsumit at home along with striverdi. This has been restarted but has been held as he is unable to take oral medications. Monitor fluid status closely. Dm- on lantus which has been held while he is confused and not taking PO. will add ss and schedule BG checks Dementia- frequent reorientation. Mimimize narcotics and muscle relaxers. started on precedex due to delirium -minimize prededex -if able to place NG would consider seroquel -two days now without PO, failed attempt to place NG today. Chronic pain- hold home meds for now. PPX- Lovenox Fluids-cautious with fluids. Lytes- WNL Nutrition- NPO for now Cor- change to DNR/DNI Dispo- remain in ICU with acute hypoxemic respiratory failure, on precedex. High risk of mortality given comorbidities. I hjad a long discussion with today and she would like to continue with current plan for now. Does not appear ready to consider comfort care as he was fairly functional prior to this admission I spent 40 minutes of critical care time on the management of this patient. Subjective: sedated. responds minimally to stimuli Objective: Vital Signs Temp Pulse Resp BP Pulse Ox 36.9 C 74 20 144/77 H 94 08/28/18 12:48 08/28/18 16:20 08/28/18 16:20 08/28/18 15:36 08/28/18 16:20 Laboratory Results 08/28/18 04:15 08/28/18 04:15 08/27/18 08/28/18 08/29/18 05:59 05:59 05:59 Intake Total 2637 816 Output Total 2250 8530 1150 Balance 387 -1634 -1150 PT 13.8 SEC (12.0-15.0) 08/25/18 18:00 INR 1.10 (0.83-1.16) 08/25/18 18:00 - Physical Exam Constitutional: no apparent distress Eyes: PERRL Ears, Nose, Mouth, Throat: moist mucous membranes Cardiovascular: regular rate and rhythym Respiratory: reduced air movement, inspiratory crackles Gastrointestinal: normoactive bowel sounds Genitourinary: corona in urethra Skin: normal color Musculoskeletal: generalized weakness Neurologic: other (sedated and minimally responsive) Psychiatric: encephalopathic Lymph, Heme, Immunologic: no cervical LAD ICD10 Worksheet Patient Problems: Problems Problem Status Onset Pneumonia Acute
[2018-08-28] MEDS: ATORVASTATIN CALCIUM 20 MG TAB PO SCH (21:19)
[2018-08-28] MEDS: PATCH REMOVAL 1 EA PATCH TD SCH (21:20)
[2018-08-29] MEDS: DEXMEDETOMIDINE HCL 400 MCG in NS 100 ML IV PRN ×5 (00:40→21:40)
[2018-08-29] MEDS: HALOPERIDOL LACT 5 MG/ML INJ IVP PRN (01:36)
[2018-08-29] MEDS: HYDROmorphONE/DILAUDID 1 MG/ML INJ IVP PRN ×2 (01:36→12:44)
[2018-08-29] MEDS: HYDROmorphONE/DILAUDID 1 MG/ML INJ IVP SCH ×3 (03:33→11:45)
[2018-08-29] MEDS: oxyCODONE IR 5 MG TAB PO SCH ×2 (05:09→12:46)
[2018-08-29] MEDS: OXYCODONE/APAP 5/325 TAB PO SCH ×2 (05:10→12:46)
[2018-08-29] MEDS: IPRATROPIUM/ALBUTEROL 3 ML DEYVIAL IH SCH ×4 (05:19→20:35)
[2018-08-29 06:12] LABS: PLATELET COUNT 155 10^3/uL (150-400)
[2018-08-29] MEDS: BECLOMETHASONE QVAR 80 REDIHALER 120 INH/10.6 GM MDI IH SCH (07:31)
[2018-08-29] MEDS: CHOLECALCIFEROL VIT D3 2,000 UNITS TAB/CAP PO SCH (07:31)
[2018-08-29] MEDS: ASPIRIN EC 81 MG TAB PO SCH (07:31)
[2018-08-29] MEDS: CYANO/VITAMIN B12 1000 MCG TAB PO SCH (07:31)
[2018-08-29] MEDS: DOCUSATE SODIUM 100 MG CAP PO SCH (07:32)
[2018-08-29] MEDS: MEMANTINE HCL 5 MG TAB PO SCH (07:33)
[2018-08-29] MEDS: OMEGA-3 FATTY ACIDS 1,000 MG CAP PO SCH (07:33)
[2018-08-29] MEDS: MULTIVITAMINS 1 EACH TAB PO SCH (07:33)
[2018-08-29] MEDS: VITAMIN E ACETATE PO SCH (07:34)
[2018-08-29] MEDS: POTASSIUM CL 10 MEQ TAB PO SCH (07:34)
[2018-08-29] MEDS: TADALAFIL 20 MG TABLET PO SCH (07:34)
[2018-08-29] MEDS: PREGABALIN 100 MG CAP PO SCH (07:34)
[2018-08-29] MEDS: PANTOPRAZOLE SODIUM 40 MG TAB PO SCH (07:34)
[2018-08-29] MEDS: INSULIN LISPRO 100 UNIT/ML SC SCH ×3 (08:54→23:26)
[2018-08-29] MEDS: ENOXAPARIN 40 MG/0.4 ML SYR SC SCH (08:54)
[2018-08-29] MEDS ORDERED: FUROSEMIDE 40 MG/4 ML VIAL IVP ONE (09:05)
[2018-08-29] MEDS ORDERED: LIDOCAINE 2% JELLY 20 ML (UROJECT) ONE (09:16)
[2018-08-29] MEDS: AZITHROMYCIN IV 500 MG in NS 250 ML IV SCH (09:32)
--- NOTE | 2018-08-29 10:16 | HOSPPROG ---
Hospitalist Progress Note Assessment/Plan: * acute hypoxemic resp failure * acute R side CHF * metabolic encephalopathy, acute - requiring ongoing precedex due to agitation and inability to cooperate w care * chronic pulm HTN * diabetes * dementia * chronic pain * continue to attempt to get "oral" medicines in but will try to place NG tube again; see if we can get away from precedex Objective: Vital Signs Temp Pulse Resp BP Pulse Ox 36.6 C 66 25 H 154/76 H 93 08/29/18 07:59 08/29/18 07:59 08/29/18 07:59 08/29/18 07:59 08/29/18 07:59 Laboratory Results 08/29/18 06:00 08/29/18 06:00 08/28/18 08/29/18 08/30/18 06:59 06:59 06:59 Intake Total 816 873 Output Total 3920 1775 Balance -1634 -902 PT 13.8 SEC (12.0-15.0) 08/25/18 18:00 INR 1.10 (0.83-1.16) 08/25/18 18:00 ICD10 Worksheet Patient Problems: Problems Problem Status Onset Pneumonia Acute
[2018-08-29] MEDS: LIDOCAINE 4%/MENTHOL 1% PATCH TD SCH (10:23)
[2018-08-29] MEDS: FLUTICASONE NASAL 120 SPRAYS/16 GM MDI EACHNARE SCH (10:24)
[2018-08-29] MEDS ORDERED: MIDAZOLAM 2 MG/2 ML VIAL IVP ONE (11:46)
[2018-08-29] MEDS ORDERED: MIDAZOLAM 2 MG/2 ML VIAL ONE (11:47)
[2018-08-29] MEDS: ERTAPENEM 1 GM in NS 100 ML IV SCH (12:46)
[2018-08-29] MEDS ORDERED: QUEtiapine FUMARATE 100 MG TAB PO ONE (12:49)
[2018-08-29] MEDS ORDERED: QUEtiapine FUMARATE 100 MG TAB TUBE ONE (13:00)
--- NOTE | 2018-08-29 13:07 | PDINTPN ---
Laboratory Specialist Progress Note Assessment/Plan: Assessment: 82-year-old with severe underlying dementia and pulmonary artery hypertension admitted after 08/25 acute AMS/collapse in a restaurant. Acute respiratory failure. Present on admission. Has had increasing oxygen requirements over the last 24-48 hours. Bronchopneumonia cannot be excluded and he has been treated for community-acquired infection since admission, however aspiration could not be excluded. Chest x-ray shows increased bilateral diffuse infiltrates today most consistent with pulmonary edema however diffuse pneumonitis from aspiration cannot be excluded. He is at risk for aspiration. Has a very poor cough and attempts at NG placements ended up in airways yesterday. COPD/emphysema: Contributing certainly to the above. On bronchodilator medications. Pulmonary hypertension: Severe, on Adcirca and Macitentan. He is [facility] for [facility]. Recent pressures 70, down from 90 previously by report. 66 with echo done here. Dementia. Severe, progressive over the last 5 years. Unable to recognize his of greater than 50 years at this point. Agitation: Secondary to dementia and acute illness. On relatively high-dose Precedex which is not a long-term solution. Increased agitation may be also secondary to NPO status currently and lack of adequate opiates/opiate withdrawal ? An NG tube could not be placed yesterday and will be hopefully place today. Hypotension: Secondary to Precedex initially. Better now. Diabetes mellitus: On sliding scale and long-acting insulin. Glucoses are well controlled. DVT prophylaxis: On enoxaparin. GI: On pantoprazole Nutrition: NPO secondary to sedation associated with Precedex. NG tube placement will be re-attempted today.. Disposition: Likely SNF. His was caring for him despite the progressive dementia. She may not be able to do at least temporarily after discharge. Palliative care consultation was done 08/28. Events directives: No cor/DNR/DNI. Plan: Continued care in the intensive care unit will be maintained. Precedex will be continued for now but weaned again today. Avoid benzodiazepines. P.r.n. Haldol can be continued. A NG tube will hopefully be placed today. Seroquel will be added. Risperdal or Zyprexa could be considered. Dilaudid will be given scheduled for a short period of time until oral narcotics can be re-added. Lasix will be repeated at 40 mg today. We want to avoid over- diuresis in light of his severe pulmonary hypertension. Antibiotic coverage will be switched to ertapenem for possible aspiration. Bronchodilators will be continued. Follow laboratory, chest x-ray, clinical status. 30 min of critical care time spent initial with the patient. Discussed with, hospitalist, nursing, and the ICU multi disciplinary team. An additional 20 min of my time was spent directly with the patient placing an NG tube. Initial attempts were difficult and the NG probably ended up in his airways. Eventually, we were able to successfully place a tube into his stomach. I had a long conversation with the patient's , approximately 30 min. We discussed current care, SNF if he gets through this, the need for an NG tube today to provide him with oral medications, continuing care verses going to comfort care and allowing him to pass away, etc. The patient's would like to continue the present level of care at this time, at least for the next several days, in order to get better clarification regarding his course and prognosis with this admission. Subjective: Agitation persists. On higher doses of Precedex overnight, up to 1.5. Back down to about 1 this morning. He will moderate occasionally appropriate responses. Objective: Vital Signs Temp Pulse Resp BP Pulse Ox 36.4 C 60 24 H 101/60 90 L 08/29/18 12:09 08/29/18 12:09 08/29/18 12:09 08/29/18 12:09 08/29/18 12:09 Laboratory Results 08/29/18 06:00 08/29/18 06:00 08/28/18 08/29/18 08/30/18 05:59 05:59 05:59 Intake Total 816 873 Output Total 2450 1775 Balance -1634 -902 PT 13.8 SEC (12.0-15.0) 08/25/18 18:00 INR 1.10 (0.83-1.16) 08/25/18 18:00 Laboratory Tests 08/29/18 06:00 Calcium 8.4 L CXR: Increased diffuse pulmonary infiltrates most consistent with pulmonary edema. Cannot rule out aspiration pneumonitis. Recent cardiac echo showed estimated right ventricular systolic pressures to be 66. Left ventricular ejection fraction was 55. Diastolic dysfunction present. Physical Exam - Physical Exam General Appearance: mild distress (At times, waxes and wanes), other (On a OxyMask. Sedated, in restraints) EENT: PERRL/EOMI, ET tube (OxyMask in place) Neck: normal inspection (No obvious JVD) Respiratory: decreased breath sounds (Bilaterally), rales (Few nonspecific rales at the posterior bases), rhonchi (Coarse breath sounds, rhonchi with cough ), No wheezing Cardiac/Chest: regular rate, rhythm (Is in the 60s. Soft systolic murmur present, no gallop. P2 increased) Abdomen: normal bowel sounds, non-tender, soft Male Genitalia: other (Delatorre catheter in place. Good urine output over the last 2 days.) Skin: normal color, warm/dry Extremities: No pedal edema Neuro/Psych: no motor/sensory deficits (Moves all extremities equally), cognition abnormalities (No change, dementia, agitation and combativeness at times.) ICD10 Worksheet Patient Problems: Problems Problem Status Onset Pneumonia Acute
[2018-08-29] MEDS ORDERED: ACETAMINOPHEN 325 MG TAB TUBE PRN (14:00)
[2018-08-29] MEDS ORDERED: ONDANSETRON DISINTEGRATING 4 MG TAB TUBE PRN (14:00)
[2018-08-29] MEDS ORDERED: OXYCODONE/APAP 5/325 TAB TUBE PRN (14:00)
[2018-08-29] MEDS: oxyCODONE IR 5 MG TAB TUBE SCH ×3 (14:30→21:21)
[2018-08-29] MEDS: OXYCODONE/APAP 5/325 TAB TUBE SCH ×3 (14:30→21:21)
--- NOTE | 2018-08-29 16:38 | HOSPPROG ---
Hospitalist Progress Note Assessment/Plan: DIAGNOSES: * acute hypoxemic resp failure * Severe chronic pulmonary hypertension 70s to 90s, on Adcirca and Macitentan * acute R side CHF * COPD/emphysema * metabolic encephalopathy, acute - requiring ongoing precedex due to agitation and inability to cooperate w care * chronic pulm HTN * diabetes * Gait instability, falls at home * dementia * chronic pain on chronic daily narcotic use PLANS: * Continue ICU care * continue to attempt to get "oral" medicines in but will need to try to place NG tube again; see if we can get away from precedex * Continue current respiratory therapies otherwise * Continue ertapenem * Continue IV diuresis * Continue current pain medicines * Follow sugars closely * DVT prophylaxis * Ongoing discussions with regarding end of life management, care decisions Seen by me on hospitalist rounds as well as multidisciplinary rounds I reviewed withDr. Angel Vidal SUBJECTIVE: Patient is sleeping, does not arouse, still on some sedation, unable to directly assess symptoms I discussed with his is at been at the bedside all day, he has seem to be relatively common relaxed all told, she is not aware of any new discomforts OBJECTIVE Vitals reviewed: Still tachypneic, intermittent mild hypertension, 13-15 L OxyMask, no fever Ointment Mill Tender, my review: Sinus Exam: Poorly arousable, still on sedation skin warm dry somewhat pale resps not labored lungs somewhat diminished but otherwise clear BSs heart regular abd soft nondistended, does not appear tender, bowel sounds present limbs warm, no edema Nasogastric tube is now in place and properly secured iv site ok Lab data: Sugars in good range CBC and metabolic panel remains stable Imaging: I reviewed images from today's chest x-ray which shows severe diffuse interstitial abnormalities I reviewed images from today's abdominal x-ray which shows new nasogastric feeding tube with tip located sufficiently within the gastric lumen for E beginning use Objective: Vital Signs Temp Pulse Resp BP Pulse Ox 36.4 C 82 21 H 100/63 90 L 08/29/18 12:09 08/29/18 16:12 08/29/18 16:12 08/29/18 16:12 08/29/18 16:12 Laboratory Results 08/29/18 06:00 08/29/18 06:00 08/28/18 08/29/18 08/30/18 06:59 06:59 06:59 Intake Total 816 873 Output Total 2450 1775 1500 Balance -1634 -902 -1500 PT 13.8 SEC (12.0-15.0) 08/25/18 18:00 INR 1.10 (0.83-1.16) 08/25/18 18:00 - Time Spent With Patient Time Spent with Patient: greater than 35 minutes Time Spent with Patient: Greater than 35 minutes spent on this patients care, greater than 50% of time spent counseling, educating, and coordinating care regarding the above mentioned plan. ICD10 Worksheet Patient Problems: Problems Problem Status Onset Pneumonia Acute
[2018-08-29] MEDS: LANSOPRAZOLE SUSP 30MG/10ML UDSYR (Adult) TUBE SCH (16:44)
[2018-08-29] MEDS: PREGABALIN 100 MG CAP TUBE SCH (21:21)
[2018-08-29] MEDS: ATORVASTATIN CALCIUM 20 MG TAB TUBE SCH (21:22)
[2018-08-29] MEDS: MEMANTINE HCL 5 MG TAB TUBE SCH (21:22)
[2018-08-30] MEDS: oxyCODONE IR 5 MG TAB TUBE SCH ×4 (01:44→20:14)
[2018-08-30] MEDS: OXYCODONE/APAP 5/325 TAB TUBE SCH ×4 (01:45→20:14)
[2018-08-30 05:25] LABS: PLATELET COUNT 133 10^3/uL (150-400)
[2018-08-30] MEDS: IPRATROPIUM/ALBUTEROL 3 ML DEYVIAL IH SCH ×2 (05:25→10:36)
[2018-08-30] MEDS: DEXMEDETOMIDINE HCL 400 MCG in NS 100 ML IV PRN (05:43)
[2018-08-30] MEDS: PATCH REMOVAL 1 EA PATCH TD SCH ×3 (06:17→20:17)
[2018-08-30] MEDS: INSULIN LISPRO 100 UNIT/ML SC SCH ×3 (07:57→17:34)
[2018-08-30] MEDS: PREGABALIN 100 MG CAP TUBE SCH ×2 (08:05→20:14)
[2018-08-30] MEDS: MEMANTINE HCL 5 MG TAB TUBE SCH ×2 (08:05→20:14)
[2018-08-30] MEDS: ASPIRIN 81 MG CHEWABLE TAB TUBE SCH (08:05)
[2018-08-30] MEDS: CHOLECALCIFEROL VIT D3 2,000 UNITS TAB/CAP TUBE SCH (08:05)
[2018-08-30] MEDS: CYANO/VITAMIN B12 1000 MCG TAB TUBE SCH (08:05)
[2018-08-30] MEDS: POTASSIUM CL 20 MEQ/15 ML UDCUP TUBE SCH (08:05)
[2018-08-30] MEDS: LANSOPRAZOLE SUSP 30MG/10ML UDSYR (Adult) TUBE SCH (08:06)
[2018-08-30] MEDS: LIDOCAINE 4%/MENTHOL 1% PATCH TD SCH (08:06)
[2018-08-30] MEDS: ENOXAPARIN 40 MG/0.4 ML SYR SC SCH (08:06)
[2018-08-30] MEDS: TADALAFIL 20 MG TABLET TUBE SCH (08:36)
[2018-08-30] MEDS: FLUTICASONE NASAL 120 SPRAYS/16 GM MDI EACHNARE SCH (10:11)
[2018-08-30] MEDS: ERTAPENEM 1 GM in NS 100 ML IV SCH (10:11)
[2018-08-30] MEDS ORDERED: FUROSEMIDE 40 MG/4 ML VIAL IVP ONE (12:15)
--- NOTE | 2018-08-30 12:22 | PDINTPN ---
Overedge Sewer Progress Note Assessment/Plan: Assessment: 82-year-old with severe underlying dementia and pulmonary artery hypertension admitted 08/25 after acute AMS/collapse in a restaurant. Acute respiratory failure. Bronchopneumonia felt to be present on admission and he has been treated for community-acquired infection since admission. Has had increasing oxygen requirements after doing well for initial few days. Aspiration could not be excluded. Chest x-ray show increased bilateral diffuse infiltrates today consistent with pulmonary edema verses diffuse pneumonitis. Has a very poor cough reflex and attempts at NG placements ended up in airways transiently. He is at risk for aspiration, but was eating and swallowing without problems prior to decompensating. COPD/emphysema: Contributing certainly to the above. On bronchodilator medications. Pulmonary hypertension: Severe, on Adcirca and Macitentan. He is followed at [facility] for this. Recent pressures 70, down from 90 previously by report. 66 with echo done here. Dementia. Severe, progressive over the last 5 years. Unable to recognize his of greater than 50 years at this point. Agitation: Secondary to dementia and acute illness. On relatively high-dose Precedex which is not a long-term solution. Increased agitation may be also secondary to NPO status currently and lack of adequate opiates/opiate withdrawal ? An NG tube could not be placed yesterday and will be hopefully place today. Hypotension: Secondary to Precedex initially. Better now. Diabetes mellitus: On sliding scale and long-acting insulin. Glucoses are well controlled. DVT prophylaxis: On enoxaparin. GI: On pantoprazole Nutrition: NPO secondary to sedation associated with Precedex. NG tube placement will be re-attempted today.. Disposition: Likely SNF. His was caring for him despite the progressive dementia. She may not be able to do at least temporarily after discharge. Palliative care consultation was done 08/28. Events directives: No cor/DNR/DNI. Plan: Continued care in the intensive care unit will be maintained. Precedex will be weaned as he is now getting oral medications via his NG. Avoid benzodiazepines. P.r.n. Haldol can be continued. Continue Seroquel. Risperdal or Zyprexa could be considered. Continue his usual oral narcotics via NG. Lasix will be repeated at 40 mg today. We want to avoid over-diuresis in light of his severe pulmonary hypertension. Continue ertapenem for possible aspiration. Bronchodilators will be continued. Assess swallow today as he wakes up more. Follow laboratory, chest x-ray, clinical status. 35 min of critical care time spent with the patient. Discussed with the patient 's , hospitalist, nursing, and the ICU multi disciplinary team. Subjective: Calmer today. On decreasing Precedex. Able to make some simple responses. Objective: Vital Signs Temp Pulse Resp BP Pulse Ox 37.2 C 99 23 H 134/61 H 91 L 08/30/18 11:55 08/30/18 11:55 08/30/18 11:55 08/30/18 11:55 08/30/18 11:55 Laboratory Results 08/30/18 05:03 08/30/18 05:03 08/29/18 08/30/18 08/31/18 05:59 05:59 05:59 Intake Total 873 Output Total 1775 1750 200 Balance -902 -1750 -200 PT 13.8 SEC (12.0-15.0) 08/25/18 18:00 INR 1.10 (0.83-1.16) 08/25/18 18:00 Laboratory Tests 08/30/18 05:03 Calcium 8.4 L Total Bilirubin 0.7 ALT 30 Alkaline Phosphatase 48 Albumin 2.9 L CXR: Unchanged. Diffuse bilateral infiltrates persist consistent with pulmonary edema and or pneumonitis. Physical Exam - Physical Exam General Appearance: mild distress (With restlessness and agitation at times), other (Somnolent/sedated, but less so. Easily arousable, responds) EENT: PERRL/EOMI, other (OxyMask in place at 10 L) Neck: normal inspection (Jugular venous pressure increased) Respiratory: decreased breath sounds (Decreased breath sounds and air exchange bilaterally. 1 take deep breaths for me.), rales (Rales at bases), No rhonchi ( No oralia rhonchi but coarse breath sounds, some central congestion), No wheezing Cardiac/Chest: regular rate, rhythm, systolic murmur, No gallop Abdomen: normal bowel sounds, non-tender, soft Male Genitalia: other (Catheter in place. Good urine output over the last several days: Output greater than input) Skin: normal color, warm/dry Extremities: pedal edema (Trace +) Neuro/Psych: no motor/sensory deficits (Moves all extremities equally), cognition abnormalities (Improved agitation. Severe dementia) ICD10 Worksheet Patient Problems: Problems Problem Status Onset Pneumonia Acute
--- NOTE | 2018-08-30 15:12 | HOSPPROG ---
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 with recent CT at [facility] showing interstitial changes * metabolic encephalopathy, acute - requiring ongoing precedex due to agitation and inability to cooperate w care * diabetes * Gait instability, falls at home * dementia * chronic pain on chronic daily narcotic use PLANS: * Continue ICU care * continue to attempt to get "oral" medicines in via NG tube * Attempt to wean from Precedex * Continue current respiratory therapies otherwise * Continue ertapenem empiric therapy * Continue IV diuresis * Continue current pain medicines * Follow sugars closely * DVT prophylaxis * Ongoing discussions with regarding end of life management, care decisions , currently DNR but wanting aggressive management at this time Seen by me on hospitalist rounds as well as multidisciplinary rounds I reviewed with Dr. Angel Vidal SUBJECTIVE: Patient is sleeping, does not arouse, still on some sedation, unable to directly assess symptoms I discussed with his is at been at the bedside all day, he has seem to be relatively common relaxed all told, she is not aware of any new discomforts OBJECTIVE Vitals reviewed: T 37.7 degrees this morning highest temperature in several days; still intermittent tachypnea, stable blood pressure and pulse Excel Analyst, my review: Sinus Exam: Poorly arousable, still on sedation skin warm dry somewhat pale resps not labored lungs somewhat diminished but otherwise clear BSs heart regular abd soft nondistended, does not appear tender, bowel sounds present limbs warm, no edema Nasogastric tube is now in place and properly secured iv site ok Lab data: Sugars in good range CBC and metabolic panel remains stable Imaging: I reviewed images from today's chest x-ray which shows severe diffuse interstitial abnormalities I reviewed images from today's abdominal x-ray which shows new nasogastric feeding tube with tip located sufficiently within the gastric lumen for E beginning use Objective: Vital Signs Temp Pulse Resp BP Pulse Ox 37.2 C 99 23 H 134/61 H 91 L 08/30/18 11:55 08/30/18 11:55 08/30/18 11:55 08/30/18 11:55 08/30/18 11:55 Laboratory Results 08/30/18 05:03 08/30/18 05:03 08/29/18 08/30/18 08/31/18 06:59 06:59 06:59 Intake Total 873 Output Total 1775 1750 700 Balance -902 -1750 -700 PT 13.8 SEC (12.0-15.0) 08/25/18 18:00 INR 1.10 (0.83-1.16) 08/25/18 18:00 ICD10 Worksheet Patient Problems: Problems Problem Status Onset Pneumonia Acute
[2018-08-30] MEDS ORDERED: IPRATROPIUM BROMIDE 0.5 MG/2.5 ML DEYVIAL IH PRN (15:41)
--- NOTE | 2018-08-30 15:53 | HOSPPROG ---
Hospitalist Progress Note Assessment/Plan: This patient with known chronic COPD and possible fibrotic lung disease with severe pulmonary hypertension on medicines for that as outpatient comes in with weakness falls confusion is found have severe acute on chronic respiratory failure with encephalopathy. Today he is having increased respiratory secretions, and worsened O2 need & what looks like multifocal atrial tachycardia after a large coughing spell. Chest x-rays have an appearance suggestive possible pulmonary edema on top of fibrotic change, though his echo does not show significant left-sided heart or left valve problems. He does have some right heart heart failure upon arrival here, is being diuresed. Sr Vidal has spent extensive time with the patient's on end of life issues and care plan options - at present remains DNR, though would like an attempt at aggressive care now, with the understanding he may not recover; she might consider change to a palliative approach in that case. 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 with recent CT at [facility] showing interstitial changes * Multifocal Atrial Tachycardia, new onset today * metabolic encephalopathy, acute - requiring ongoing precedex due to agitation and inability to cooperate w care * diabetes * Gait instability, falls at home * dementia * chronic pain on chronic daily narcotic use PLANS: * Continue ICU care * with worsened oxygenation and MAT will change to xopenex and add mucomyst nebs * Attempt to wean from Precedex * Continue ertapenem empiric therapy * Continue IV diuresis * Continue current pain medicines * Follow sugars closely * DVT prophylaxis * Ongoing discussions with regarding end of life management, care decisions , currently DNR but wanting aggressive management at this time Seen by me on hospitalist rounds as well as multidisciplinary rounds I reviewed with Dr. Angel Vidal SUBJECTIVE: awake but non conversant unable to directly assess symptoms OBJECTIVE Vitals reviewed: T 37.7 degrees this morning highest temperature in several days; now w HR 115-140s [employer] Clerk, my review: has now developed MAT Exam: Poorly arousable, still on sedation skin warm dry somewhat pale resps not labored lungs somewhat diminished but otherwise clear BSs heart rapid irregular abd soft nondistended, does not appear tender, bowel sounds present limbs warm, no edema Nasogastric tube is now in place and properly secured iv site ok Lab data: Sugars in good range CBC and metabolic panel remains stable Imaging: I reviewed images from today's chest x-ray which shows severe diffuse interstitial abnormalities, ? pulm edema as well Objective: Vital Signs Temp Pulse Resp BP Pulse Ox 37.2 C 99 23 H 134/61 H 91 L 08/30/18 11:55 08/30/18 11:55 08/30/18 11:55 08/30/18 11:55 08/30/18 11:55 Laboratory Results 08/30/18 05:03 08/30/18 05:03 08/29/18 08/30/18 08/31/18 06:59 06:59 06:59 Intake Total 873 Output Total 1775 1750 700 Balance -902 -1750 -700 PT 13.8 SEC (12.0-15.0) 08/25/18 18:00 INR 1.10 (0.83-1.16) 08/25/18 18:00 - Time Spent With Patient Time Spent with Patient: greater than 35 minutes Time Spent with Patient: Greater than 35 minutes spent on this patients care, greater than 50% of time spent counseling, educating, and coordinating care regarding the above mentioned plan. ICD10 Worksheet Patient Problems: Problems Problem Status Onset Pneumonia Acute
[2018-08-30] MEDS: ACETYLCYSTEINE 20% IH/PO 4 ML VIAL IH SCH ×3 (16:04→22:00)
[2018-08-30] MEDS: LEVALBUTEROL 1.25 MG/3 ML DEYVIAL IH SCH ×3 (16:04→22:00)
[2018-08-30] MEDS: METOPROLOL TARTRATE 5 MG/5 ML INJ IVP SCH (17:33)
[2018-08-30] MEDS: ATORVASTATIN CALCIUM 20 MG TAB TUBE SCH (20:15)
[2018-08-30] MEDS ORDERED: QUEtiapine FUMARATE 100 MG TAB TUBE ONE (21:00)
[2018-08-31] MEDS: METOPROLOL TARTRATE 5 MG/5 ML INJ IVP SCH ×3 (00:59→13:35)
[2018-08-31] MEDS: oxyCODONE IR 5 MG TAB TUBE SCH ×4 (02:51→21:15)
[2018-08-31] MEDS: OXYCODONE/APAP 5/325 TAB TUBE SCH ×4 (02:51→21:15)
[2018-08-31] MEDS: LEVALBUTEROL 1.25 MG/3 ML DEYVIAL IH SCH ×4 (05:11→23:04)
[2018-08-31] MEDS: ACETYLCYSTEINE 20% IH/PO 4 ML VIAL IH SCH ×4 (05:11→23:04)
[2018-08-31] MEDS: ERTAPENEM 1 GM in NS 100 ML IV SCH (07:40)
[2018-08-31] MEDS: LIDOCAINE 4%/MENTHOL 1% PATCH TD SCH (07:40)
[2018-08-31] MEDS: LANSOPRAZOLE SUSP 30MG/10ML UDSYR (Adult) TUBE SCH (07:40)
[2018-08-31] MEDS: ENOXAPARIN 40 MG/0.4 ML SYR SC SCH (07:41)
[2018-08-31] MEDS: CHOLECALCIFEROL VIT D3 2,000 UNITS TAB/CAP TUBE SCH (07:41)
[2018-08-31] MEDS: ASPIRIN 81 MG CHEWABLE TAB TUBE SCH (07:42)
[2018-08-31] MEDS: MEMANTINE HCL 5 MG TAB TUBE SCH ×2 (07:42→21:19)
[2018-08-31] MEDS: CYANO/VITAMIN B12 1000 MCG TAB TUBE SCH (07:43)
[2018-08-31] MEDS: INSULIN LISPRO 100 UNIT/ML SC SCH ×3 (07:44→18:16)
[2018-08-31] MEDS: POTASSIUM CL 20 MEQ/15 ML UDCUP TUBE SCH (07:44)
[2018-08-31] MEDS: FLUTICASONE NASAL 120 SPRAYS/16 GM MDI EACHNARE SCH (07:44)
[2018-08-31] MEDS: TADALAFIL 20 MG TABLET TUBE SCH (07:45)
[2018-08-31] MEDS: PREGABALIN 100 MG CAP TUBE SCH ×2 (07:49→21:18)
--- NOTE | 2018-08-31 08:20 | HOSPPROG ---
Hospitalist Progress Note Assessment/Plan: #Acute on chronic hypoxemic resp failure: PNA. febrile and progressive infiltrates on CXR today. Aspiration-risk, edema. Lasix again today. Cont Ertapenem #Acute metabolic encephalopathy: less responsive this morning. Did receive high- dose Seroquel last night. Hold sedatives. Melatonin for sleep #Pulmonary HTN: Maliha Amaya outpatient. Monitor volume status closely with diuresis #Acutely decompensated right HF #COPD/Emphysema #MAT: BB #DM: glargine, SSI #Dementia: spoke with his Neurologist, Dr. Ceballos for update per 's request #Chronic pain with opioid dependence: limit sedative medications #Falls: SNF at [place] #Right hand swelling: negative xray, remove PIV. Ice #Diet: tube feeds #DVT ppx: Lovenox #Goals: Dr. Gant spoke with PCP in regards to Palliative care #Disp: cont ICU care for IV abx, telemetry Subjective: less responsive this morning Objective: Vital Signs Temp Pulse Resp BP Pulse Ox 38.3 C H 98 27 H 152/81 H 92 08/30/18 20:00 08/31/18 07:30 08/31/18 07:30 08/31/18 07:30 08/31/18 07:30 Laboratory Results 08/30/18 05:03 08/31/18 04:53 08/30/18 08/31/18 09/01/18 05:59 05:59 05:59 Intake Total 780 Output Total 1750 1400 Balance -1750 -620 PT 13.8 SEC (12.0-15.0) 08/25/18 18:00 INR 1.10 (0.83-1.16) 08/25/18 18:00 - Time Spent With Patient Time Spent with Patient: greater than 35 minutes Time Spent with Patient: Greater than 35 minutes spent on this patients care, greater than 50% of time spent counseling, educating, and coordinating care regarding the above mentioned plan. - Physical Exam Constitutional: other (ill-appearing) Eyes: PERRL Ears, Nose, Mouth, Throat: other (small forehead laceration) Cardiovascular: regular rate and rhythym Respiratory: no respiratory distress Gastrointestinal: normoactive bowel sounds Skin: other (right dorsum hand swollen, mildly red) Musculoskeletal: other (restrained) Neurologic: other (not participating in exam. Opens eyes to voice, follows simple commands: squeezes hands BL) Psychiatric: encephalopathic ICD10 Worksheet Patient Problems: Problems Problem Status Onset Pneumonia Acute
--- NOTE | 2018-08-31 12:58 | PDINTPN ---
Stock Grader Progress Note Assessment/Plan: Assessment: Assessment: 82-year-old with severe underlying dementia and pulmonary artery hypertension admitted 08/25 after acute AMS/collapse in a restaurant. Acute respiratory failure. Bronchopneumonia felt to be present on admission and he has been treated for community-acquired infection since admission. Has had increasing oxygen requirements after doing well for initial few days. Aspiration could not be excluded. Chest x-ray show increased bilateral diffuse infiltrates today consistent with pulmonary edema verses diffuse pneumonitis. Has a very poor cough reflex and attempts at NG placements ended up in airways transiently. He is at risk for aspiration, but was eating and swallowing without problems prior to decompensating. Decreased breath sounds on left today. COPD/emphysema: Contributing certainly to the above. On bronchodilator medications. Pulmonary hypertension: Severe, on Adcirca and Macitentan. He is followed at [facility] for this. Recent pressures 70, down from 90 previously by rport. 66 with echo done here. Not currently on these meds. Dementia. Severe, progressive over the last 5 years. Unable to recognize his of greater than 50 years at this point. Agitation: Secondary to dementia and acute illness. On relatively high-dose Precedex which is not a long-term solution. Increased agitation may be also secondary to NPO status currently and lack of adequate opiates/opiate withdrawal ? An NG tube was placed yesterday. Hypotension: Secondary to Precedex initially. Better now. Diabetes mellitus: On sliding scale and long-acting insulin. Glucoses are well controlled. DVT prophylaxis: On enoxaparin. GI: On pantoprazole Nutrition: NPO secondary to sedation associated with Precedex. NG tube placement will be re-attempted today.. Disposition: Likely SNF. His was caring for him despite the progressive dementia. She may not be able to do at least temporarily after discharge. Palliative care consultation was done 08/28. Advanced directives: No cor/DNR/DNI. Plan: Continued care in the intensive care unit will be maintained. Avoid benzodiazepines. P.r.n. Haldol can be continued. Minimize sedatives. Start Melatonin. Continue his usual oral narcotics via NG. Lasix will be repeated at 40 mg today. We want to avoid over-diuresis in light of his severe pulmonary hypertension. Continue ertapenem for possible aspiration. Bronchodilators will be continued. Repeat CXR, ? mucous plug causing decreased breath sounds on left. Assess swallow today as he wakes up more. Follow laboratory, chest x-ray, clinical status. 08/31/18 13:23 Subjective: Somnolent, not answering questions Objective: Vital Signs Temp Pulse Resp BP Pulse Ox 99.7 C H 111 H 29 H 127/77 H 95 08/31/18 10:26 08/31/18 11:55 08/31/18 11:55 08/31/18 11:55 08/31/18 11:55 Laboratory Results 08/30/18 05:03 08/31/18 04:53 08/30/18 08/31/18 09/01/18 05:59 05:59 05:59 Intake Total 780 Output Total 1750 1400 Balance -1750 -620 PT 13.8 SEC (12.0-15.0) 08/25/18 18:00 INR 1.10 (0.83-1.16) 08/25/18 18:00 Chest x-ray: Persistent basilar densities and diffuse interstitial infiltrates. Images reviewed by me. Right hand x-ray: Scafolunate diastasis, suggesting a ligamentous injury. No fracture. Laboratory Tests 08/31/18 10:50 pCO2 38 pO2 80 H Total CO2 26 ABG pH 7.42 ABG O2 Saturation 96 H Total O2 Concentration 15.0 Physical Exam - Physical Exam General Appearance: other (Somnolent but arousable. Attempts to follow simple commands.) EENT: normal ENT inspection Neck: normal inspection Respiratory: decreased breath sounds (On left) Cardiac/Chest: irregularly irregular, No edema Abdomen: normal bowel sounds, non-tender Skin: normal color, warm/dry Extremities: normal inspection Neuro/Psych: No alert ICD10 Worksheet Patient Problems: Problems Problem Status Onset Pneumonia Acute
--- NOTE | 2018-08-31 15:07 | ASMTCMCOM ---
CM Note CM Note Notes: Spoke with patient's Mechelle today who wants their PCP to weigh in on decisions being made for the patient's medical care. Dr. Gant spoke with Pat also and he will be in contact with Dr. Mims, PCP. Therapies have not been able to work with the patient due to his medical condition currently. The trajectory for patient's care is still unclear and will be evolving over the next several days. D/C plan TBD. CM will follow. Date Signed: 08/31/2018 03:06 PM Electronically Signed By:Dolly Oshea LCSW
[2018-08-31] MEDS ORDERED: INSULIN GLARGINE 100 UNITS/ML UNIT SC SCH ×2 (15:25→21:00)
[2018-08-31] MEDS ORDERED: METOPROLOL TARTRATE 25 MG TAB TUBE SCH (18:00)
--- NOTE | 2018-08-31 20:57 | HOSPPROG ---
Hospitalist Progress Note Assessment/Plan: Called by davion cover on patients vital signs--o2 sats now in low 80s despite 15L NRB and oxymask. ordered ABG notable for o2 of 45 down from earlier today at 80, ordered repeat CXR with increased diffuse bilateral infiltrates. REviewed notes, prior imaging, noted patient DNR, abx of ertapenem for possible aspiration. Patient febrile today as well and CXR c/w either progressive pneumonia or pulmonary edema or both. Broadened abx to vanc/merrem from ertapenem for coverage of nosocomial organisms including pseudomonas/MRSA; given lasix 40mg x 1; started trial bipap. Called and notified patients who is planning to return to the hospital, explained that he has taken a turn and that this may not be survivable. She understands and confirms his DNR status. Notified patients PCP. > 45 min critical care time spent at bedside, coordinating with nurses, interpreting labs/imaging Objective: Vital Signs Temp Pulse Resp BP Pulse Ox 38.6 C H 127 H 31 H 138/72 H 82 L 08/31/18 19:50 08/31/18 19:50 08/31/18 19:50 08/31/18 19:50 08/31/18 19:50 Laboratory Results 08/30/18 05:03 08/31/18 04:53 08/30/18 08/31/18 09/01/18 05:59 05:59 05:59 Intake Total 780 675 Output Total 1750 1400 300 Balance -1750 -620 375 PT 13.8 SEC (12.0-15.0) 08/25/18 18:00 INR 1.10 (0.83-1.16) 08/25/18 18:00 ICD10 Worksheet Patient Problems: Problems Problem Status Onset Pneumonia Acute
[2018-08-31] MEDS ORDERED: MELATONIN 3 MG TAB PO SCH (21:00)
[2018-08-31] MEDS: FUROSEMIDE 40 MG/4 ML VIAL IVP SCH (21:18)
[2018-08-31] MEDS: METOPROLOL TARTRATE 25 MG TAB TUBE SCH (21:19)
[2018-08-31] MEDS: PATCH REMOVAL 1 EA PATCH TD SCH (21:20)
[2018-08-31] MEDS: ATORVASTATIN CALCIUM 20 MG TAB TUBE SCH (21:20)
[2018-08-31] MEDS: MEROPENEM 1 GM in NS 100 ML IV SCH (22:53)
[2018-08-31] MEDS: VANCOMYCIN HCL/NORMAL SALINE 250 ML IV SCH (22:54)
[2018-09-01] MEDS: oxyCODONE IR 5 MG TAB TUBE SCH ×4 (01:49→20:58)
[2018-09-01] MEDS: OXYCODONE/APAP 5/325 TAB TUBE SCH ×4 (01:49→20:59)
[2018-09-01] MEDS: ACETAMINOPHEN 650 MG/20.3 ML UDCUP TUBE PRN ×2 (01:51→21:43)
[2018-09-01] MEDS: MEROPENEM 1 GM in NS 100 ML IV SCH ×3 (05:08→22:52)
[2018-09-01] MEDS: ACETYLCYSTEINE 20% IH/PO 4 ML VIAL IH SCH ×4 (05:23→23:09)
[2018-09-01] MEDS: LEVALBUTEROL 1.25 MG/3 ML DEYVIAL IH SCH ×4 (05:23→23:09)
[2018-09-01] MEDS: INSULIN LISPRO 100 UNIT/ML SC SCH ×4 (07:54→20:59)
[2018-09-01] MEDS: ASPIRIN 81 MG CHEWABLE TAB TUBE SCH (08:09)
[2018-09-01] MEDS: METOPROLOL TARTRATE 25 MG TAB TUBE SCH ×2 (08:09→21:00)
[2018-09-01] MEDS: MEMANTINE HCL 5 MG TAB TUBE SCH ×2 (08:09→21:00)
[2018-09-01] MEDS: PREGABALIN 100 MG CAP TUBE SCH ×2 (08:09→21:04)
[2018-09-01] MEDS: CYANO/VITAMIN B12 1000 MCG TAB TUBE SCH (08:09)
[2018-09-01] MEDS: CHOLECALCIFEROL VIT D3 2,000 UNITS TAB/CAP TUBE SCH (08:09)
[2018-09-01] MEDS: FUROSEMIDE 40 MG/4 ML VIAL IVP SCH ×2 (08:10→14:57)
[2018-09-01] MEDS: ENOXAPARIN 40 MG/0.4 ML SYR SC SCH (08:10)
[2018-09-01] MEDS: LANSOPRAZOLE SUSP 30MG/10ML UDSYR (Adult) TUBE SCH (08:10)
[2018-09-01] MEDS: LIDOCAINE 4%/MENTHOL 1% PATCH TD SCH (08:11)
[2018-09-01] MEDS: POTASSIUM CL 20 MEQ/15 ML UDCUP TUBE SCH (08:11)
[2018-09-01] MEDS: TADALAFIL 20 MG TABLET TUBE SCH (08:12)
[2018-09-01] MEDS: FLUTICASONE NASAL 120 SPRAYS/16 GM MDI EACHNARE SCH (08:37)
[2018-09-01] MEDS ORDERED: INSULIN GLARGINE 100 UNITS/ML UNIT SC SCH (08:39)
--- NOTE | 2018-09-01 08:42 | HOSPPROG ---
Hospitalist Progress Note Assessment/Plan: #Sepsis: WBC 18, tachy, febrile. Concern for aspiration. Abx were broadened last night #Acute on chronic hypoxemic resp failure: PNA. CXR with increased edema ( personally reviewed). Improved with Lasix, Bipap. #Acute metabolic encephalopathy: still not very responsive this morning. Hold sedatives. Melatonin for sleep #Pulmonary HTN: Adcirca, Macitentan outpatient. Monitor volume status closely with diuresis #Acutely decompensated right HF #COPD/Emphysema #MAT: BB #DM: glargine increased today #Dementia: spoke with his Neurologist, Dr. Ceballos for update per 's request #Constipation: AXR, bowel regimen #Chronic pain with opioid dependence: limit sedative medications #Falls: SNF at [place] #Right hand swelling: negative xray, remove PIV. Ice #Diet: tube feeds #DVT ppx: Lovenox #Goals: I spoke with Dr. Mims. does not want bronch today. She will speak with family. If no improvement tomorrow, will transition to comfort care #Disp: cont ICU care for IV abx, telemetry Subjective: increased oxygen needs last night. Dosed lasix, Bipap Objective: Vital Signs Temp Pulse Resp BP Pulse Ox 36.6 C 110 H 26 H 123/77 H 95 09/01/18 07:35 09/01/18 08:34 09/01/18 08:34 09/01/18 07:35 09/01/18 08:34 Laboratory Results 09/01/18 05:15 08/31/18 04:53 08/31/18 09/01/18 09/02/18 05:59 05:59 05:59 Intake Total 780 1125 Output Total 1400 1400 Balance -620 -275 PT 13.8 SEC (12.0-15.0) 08/25/18 18:00 INR 1.10 (0.83-1.16) 08/25/18 18:00 - Time Spent With Patient Time Spent with Patient: greater than 35 minutes Time Spent with Patient: Greater than 35 minutes spent on this patients care, greater than 50% of time spent counseling, educating, and coordinating care regarding the above mentioned plan. - Physical Exam Constitutional: no apparent distress Eyes: PERRL Ears, Nose, Mouth, Throat: moist mucous membranes Cardiovascular: regular rate and rhythym Respiratory: reduced air movement, rhonchi Gastrointestinal: normoactive bowel sounds Genitourinary: corona in urethra Skin: warm Musculoskeletal: generalized weakness Psychiatric: encephalopathic ICD10 Worksheet Patient Problems: Problems Problem Status Onset Pneumonia Acute
[2018-09-01] MEDS: VANCOMYCIN HCL/NORMAL SALINE 250 ML IV SCH ×2 (09:45→23:49)
--- NOTE | 2018-09-01 10:01 | PDINTPN ---
Account Group Supervisor Progress Note Assessment/Plan: Assessment: Assessment: 82-year-old with severe underlying dementia and pulmonary artery hypertension admitted 08/25 after acute AMS/collapse in a restaurant. Acute respiratory failure. Bronchopneumonia felt to be present on admission and he has been treated for community-acquired infection since admission. Has had increasing oxygen requirements after doing well for initial few days. Aspiration could not be excluded. Chest x-ray show increased bilateral diffuse infiltrates consistent with pulmonary edema verses diffuse pneumonitis. Has a very poor cough reflex and attempts at NG placements ended up in airways transiently. He is at risk for aspiration, but was eating and swallowing without problems prior to decompensating. Small-volume vomiting last night associated with worsening hypoxemia, elevated WBC, fever. Placed on BiPAP, FiO2 weaned down to 55%. COPD/emphysema: Contributing certainly to the above. On bronchodilator medications. Pulmonary hypertension: Severe, on Adcirca and Macitentan. He is followed at [facility] for this. Recent pressures 70, down from 90 previously by rport. 66 with echo done here. Currently on Adcirca alone, unable to give macitentan, as it cannot be crushed. Dementia. Severe, progressive over the last 5 years. Unable to recognize his of greater than 50 years at this point. Agitation: Improved, now less responsive off meds. Hypotension: Secondary to Precedex initially. Better now. Diabetes mellitus: On sliding scale and long-acting insulin. Glucoses are well controlled. DVT prophylaxis: On enoxaparin. GI: On pantoprazole Nutrition: NPO secondary to sedation associated with Precedex. NG tube placed 2 days ago, on TF at 50% of goal. Minimal residuals. Disposition: Given worsening status, discussed comfort care with the patient's , and Dr. Mims, who visited with her today. Palliative care consultation was done 08/28. Tachycardia: MAT on monitor. Advanced directives: No cor/DNR/DNI. Plan: Offered IR placement of SBFT, and bronchoscopy today for likely aspiration. would like to hold off on these procedures, observe on current therapy, discuss with family/Dr. Mims, and consider withdrawal of support. Continued care in the intensive care unit will be maintained. Minimize sedatives/benzodiazepines. Continue his usual oral narcotics via NG. Continue ertapenem for possible aspiration. Bronchodilators will be continued. 09/01/18 11:17 Subjective: Less responsive today. Objective: Vital Signs Temp Pulse Resp BP Pulse Ox 36.6 C 110 H 26 H 123/77 H 95 09/01/18 07:35 09/01/18 08:10 09/01/18 08:10 09/01/18 07:35 09/01/18 08:10 Laboratory Results 09/01/18 05:15 08/31/18 04:53 08/31/18 09/01/18 09/02/18 05:59 05:59 05:59 Intake Total 780 1125 Output Total 1400 1400 Balance -620 -275 PT 13.8 SEC (12.0-15.0) 08/25/18 18:00 INR 1.10 (0.83-1.16) 08/25/18 18:00 Chest x-ray: Persistent by basilar infiltrates. Images reviewed by me. Laboratory Tests 08/31/18 08/31/18 08/31/18 16:35 18:10 22:46 POC Glucose 219 H 276 H Procalcitonin 0.19 H 09/01/18 07:33 POC Glucose 319 H Procalcitonin Laboratory Tests 09/01/18 09:00 pO2 78 H Total CO2 28 H ABG pH 7.46 H ABG HCO3 27 H O2 Concentration % 65 Actual Respiration Rate 25 Inspiratory Pressure 12 Pressure Support 7 Mode BiPAP YES Physical Exam - Physical Exam General Appearance: other (minimally responsive to voice, touch. Not following commands.) EENT: normal ENT inspection Neck: normal inspection Respiratory: normal breath sounds, decreased breath sounds, crackles (bases) Cardiac/Chest: irregularly irregular, No edema Abdomen: non-tender Skin: normal color, warm/dry Extremities: normal inspection Neuro/Psych: No alert, No oriented x 3 ICD10 Worksheet Patient Problems: Problems Problem Status Onset Pneumonia Acute
[2018-09-01] MEDS ORDERED: MAGNESIUM HYDROXIDE 30 ML UDCUP PO PRN (10:27)
[2018-09-01] MEDS ORDERED: LACTULOSE 20 GM/30 ML UDCUP PO PRN (10:27)
[2018-09-01] MEDS ORDERED: BISACODYL 10 MG SUPP PR PRN (10:27)
[2018-09-01] MEDS ORDERED: POLYETHYLENE GLYCOL 3350 17 GM PKT PO PRN (10:27)
[2018-09-01] MEDS: SENNOSIDES/DOCUSATE SODIUM TAB PO SCH ×2 (11:51→20:59)
[2018-09-01] MEDS ORDERED: POLYETHYLENE GLYCOL 3350 17 GM PKT TUBE PRN (15:30)
[2018-09-01] MEDS ORDERED: LACTULOSE 20 GM/30 ML UDCUP TUBE PRN (15:30)
[2018-09-01] MEDS ORDERED: MAGNESIUM HYDROXIDE 30 ML UDCUP TUBE PRN (15:30)
[2018-09-01] MEDS ORDERED: MELATONIN 3 MG TAB TUBE SCH (21:00)
[2018-09-01] MEDS: ATORVASTATIN CALCIUM 20 MG TAB TUBE SCH (21:44)
[2018-09-02] MEDS: PATCH REMOVAL 1 EA PATCH TD SCH (00:04)
[2018-09-02] MEDS: oxyCODONE IR 5 MG TAB TUBE SCH ×2 (02:15→08:46)
[2018-09-02] MEDS: OXYCODONE/APAP 5/325 TAB TUBE SCH ×2 (02:15→08:47)
[2018-09-02] MEDS: MEROPENEM 1 GM in NS 100 ML IV SCH (04:22)
[2018-09-02] MEDS: LEVALBUTEROL 1.25 MG/3 ML DEYVIAL IH SCH (05:10)
[2018-09-02] MEDS: ACETYLCYSTEINE 20% IH/PO 4 ML VIAL IH SCH (05:11)
[2018-09-02 08:08] VITALS: BP 119/69
[2018-09-02] MEDS: INSULIN LISPRO 100 UNIT/ML SC SCH (08:42)
[2018-09-02] MEDS: LANSOPRAZOLE SUSP 30MG/10ML UDSYR (Adult) TUBE SCH (08:43)
[2018-09-02] MEDS: CHOLECALCIFEROL VIT D3 2,000 UNITS TAB/CAP TUBE SCH (08:44)
[2018-09-02] MEDS: ENOXAPARIN 40 MG/0.4 ML SYR SC SCH (08:44)
[2018-09-02] MEDS: FUROSEMIDE 40 MG/4 ML VIAL IVP SCH (08:44)
[2018-09-02] MEDS: POTASSIUM CL 20 MEQ/15 ML UDCUP TUBE SCH (08:45)
[2018-09-02] MEDS: MEMANTINE HCL 5 MG TAB TUBE SCH (08:46)
[2018-09-02] MEDS: PREGABALIN 100 MG CAP TUBE SCH (08:46)
[2018-09-02] MEDS: SENNOSIDES/DOCUSATE SODIUM TAB PO SCH (08:47)
[2018-09-02] MEDS: ASPIRIN 81 MG CHEWABLE TAB TUBE SCH (08:47)
[2018-09-02] MEDS: METOPROLOL TARTRATE 25 MG TAB TUBE SCH (08:48)
[2018-09-02] MEDS ORDERED: TESTOSTERONE IM 100 MG/ML SYRINGE IM SCH (09:00)
[2018-09-02] MEDS: CYANO/VITAMIN B12 1000 MCG TAB TUBE SCH (09:10)
[2018-09-02] MEDS: LIDOCAINE 4%/MENTHOL 1% PATCH TD SCH (09:11)
--- NOTE | 2018-09-02 09:57 | PDINTPN ---
Mushroom Growth Media Mixer Progress Note Assessment/Plan: Assessment: Assessment: 82-year-old with severe underlying dementia and pulmonary artery hypertension admitted 08/25 after acute AMS/collapse in a restaurant. Acute respiratory failure. Bronchopneumonia felt to be present on admission and he has been treated for community-acquired infection since admission. Has had increasing oxygen requirements after doing well for initial few days. Aspiration could not be excluded. Chest x-ray show increased bilateral diffuse infiltrates consistent with pulmonary edema verses diffuse pneumonitis. Has a very poor cough reflex and attempts at NG placements ended up in airways transiently. He is at risk for aspiration, but was eating and swallowing without problems prior to decompensating. Small-volume vomiting 08/31 associated with worsening hypoxemia, elevated WBC, fever. The fever persists Placed on BiPAP, FiO2 weaned down to 50%, but he has been on it 36 hr now. COPD/emphysema: Contributing certainly to the above. On bronchodilator medications. Pulmonary hypertension: Severe, on Adcirca and Macitentan. He is followed at [facility] for this. Recent pressures 70, down from 90 previously by rport. 66 with echo done here. Currently on Adcirca alone, unable to give macitentan, as it cannot be crushed. Dementia. Severe, progressive over the last 5 years. Unable to recognize his of greater than 50 years at this point. Agitation: Resolved, now less responsive off meds. Hypotension: Secondary to Precedex initially. Better now. Diabetes mellitus: On sliding scale and long-acting insulin. Glucoses are in 200s. DVT prophylaxis: On enoxaparin. GI: On pantoprazole Nutrition: NPO secondary to sedation associated with Precedex. NG tube placed 2 days ago, on TF at 50% of goal. Minimal residuals. Disposition: Given worsening status, discussed comfort care with the patient's , and Dr. Mims, who visited with her yesterday and saw the patient this morning. Palliative care consultation was done 08/28. Tachycardia: MAT on monitor. Rate now in 90s Advanced directives: No cor/DNR/DNI. Plan: Offered IR placement of SBFT, and bronchoscopy yesterday for likely aspiration. Since he is not any better today, the would like to withdraw support and keep him comfortable. Reviewed with Dr. Mims 09/02/18 09:54 09/02/18 09:57 Subjective: Unresponsive Objective: Vital Signs Temp Pulse Resp BP Pulse Ox 38.9 C H 113 H 20 119/69 92 09/02/18 08:00 09/02/18 08:00 09/02/18 08:00 09/02/18 08:00 09/02/18 08:00 Laboratory Results 09/01/18 05:15 08/31/18 04:53 09/01/18 09/02/18 09/03/18 05:59 05:59 05:59 Intake Total 1125 2912 Output Total 1400 1310 Balance -275 1602 PT 13.8 SEC (12.0-15.0) 08/25/18 18:00 INR 1.10 (0.83-1.16) 08/25/18 18:00 Abdominal x-ray: Constipation, in no signs of obstruction. Physical Exam - Physical Exam General Appearance: alert, no apparent distress EENT: normal ENT inspection Neck: normal inspection Respiratory: lungs clear, normal breath sounds Cardiac/Chest: regular rate, rhythm, No edema Abdomen: normal bowel sounds, non-tender Skin: normal color, warm/dry Extremities: normal inspection Neuro/Psych: No alert, No normal mood/affect, No oriented x 3 ICD10 Worksheet Patient Problems: Problems Problem Status Onset Pneumonia Acute
[2018-09-02] MEDS: TADALAFIL 20 MG TABLET TUBE SCH (10:03)
[2018-09-02] MEDS ORDERED: GLYCOPYRROLATE 0.2 MG/1 ML VIAL IVP/IM PRN (11:30)
--- NOTE | 2018-09-02 11:36 | HOSPPROG ---
Hospitalist Progress Note Assessment/Plan: #Goals: will initiate comfort measures per 's request today. D/w PCP, Dr. Gant #Sepsis: WBC 18, tachy, febrile. Concern for aspiration. Abx were broadened last night #Acute on chronic hypoxemic resp failure: PNA. CXR with increased edema ( personally reviewed). Improved with Lasix, Bipap. #Acute metabolic encephalopathy: no improvement #Pulmonary HTN: Adcirca, Macitentan outpatient. Monitor volume status closely with diuresis #Acutely decompensated right HF: #COPD/Emphysema #MAT: BB #DM: glargine increased today #Dementia: spoke with his Neurologist, Dr. Ceballos for update per 's request #Constipation: AXR, bowel regimen #Chronic pain with opioid dependence: limit sedative medications #Falls: SNF at [place] #Right hand swelling: negative xray, remove PIV. Ice #Diet: tube feeds #DVT ppx: Lovenox #Disp: change to comfort measures Subjective: would like to pursue comfort measures since no clinical improvement Objective: Vital Signs Temp Pulse Resp BP Pulse Ox 38.9 C H 113 H 20 119/69 92 09/02/18 08:00 09/02/18 08:00 09/02/18 08:00 09/02/18 08:00 09/02/18 08:00 Laboratory Results 09/01/18 05:15 08/31/18 04:53 09/01/18 09/02/18 09/03/18 05:59 05:59 05:59 Intake Total 1125 2912 Output Total 1400 1310 Balance -275 1602 PT 13.8 SEC (12.0-15.0) 08/25/18 18:00 INR 1.10 (0.83-1.16) 08/25/18 18:00 ICD10 Worksheet Patient Problems: Problems Problem Status Onset Pneumonia Acute
[2018-09-02] MEDS: FLUTICASONE NASAL 120 SPRAYS/16 GM MDI EACHNARE SCH (12:23)
[2018-09-02] MEDS: VANCOMYCIN HCL/NORMAL SALINE 250 ML IV SCH (12:24)
--- NOTE | 2018-09-03 11:40 | GDS ---
[f rep st] DISCHARGE SUMMARY DISCHARGE DIAGNOSES: 1. Sepsis. 2. Acute on chronic hypoxemic respiratory failure. 3. Acute metabolic encephalopathy. 4. Pulmonary hypertension, currently decompensated. 5. Right heart failure. 6. Chronic obstructive pulmonary disease/emphysema. 7. Multifocal atrial tachycardia. 8. Diabetes. 9. Dementia. 10. Constipation. 11. Chronic pain with opioid dependence. 12. Falls. 13. Right hand swelling. HISTORY OF PRESENT ILLNESS: An 82-year-old male with dementia, pulmonary hypertension, chronic pain on chronic narcotics, presents with a fall. Lives in [place]. He had another fall. ER chest x-r ay showed bilateral pneumonia. HOSPITAL COURSE BY PROBLEM: 1. Aspiration pneumonia: Over the past couple of days admission, patient continued to decline despi te antibiotics. 2. Acute on chronic hypoxemic respiratory failure. Combination of pneumonia, pulmonary edema, requi ring diuresis, BiPAP. 3. Acute on chronic encephalopathy secondary to critical illness. 4. Hypertension. 5. Chronic obstructive pulmonary disease/emphysema, treated with DuoNebs and antibiotics. 6. Diabetes, on glargine. 7. Dementia. His neurologist, Dr. Oneill, was contacted. 8. Constipation, bowel regimen. GOALS: The patient continued to decline clinically. spoke with her PCP, Dr. Mims, and elliott rocha and decided best to pursue comfort care. Patient with family at bedside. /[id number]/MODL
--- NOTE | 2018-09-04 16:23 | ASDISCHSUM ---
Discharge Information Plan Status:Has needs-TBD Medically Cleared to Leave: Discharge Date:09/02/2018 05:49 PM CM D/C Disposition: ADT D/C Disposition: Projected Discharge Date:08/28/2018 11:00 AM Transportation at D/C: Discharge Delay Reason: Follow-Up Date:08/28/2018 11:00 AM Discharge Slot: Final Diagnosis: Placement Information Referral Type:Palliative Care Referral ID:[id number] Provider Name: Address 1: Phone Number: Address 2: Fax Number: City: Selection Factors: State: Patient Contact Information Contact Name:DEREJE Relationship: Address:[address] Work Phone: City:[place] [facility] Phone: [facility]/Zip Code:[place] [address] Email: Financial Information Financial Class:Medicare Primary Plan Desc:MEDICARE INPATIENT Primary Plan Number:[id number] Secondary Plan Desc:[employer]/MDR SUPPLEMENT Secondary Plan Number:[id number] Assessment Information [facility] CM Progress Note CM Note CM Note Notes: Chart Review for Discharge Planning: Patient is 82 year old male who presented to [facility] ED after falling at home. His Radha of 58 years live in [place]. She drove him to the ED and provided history, she reported he also fell a few days ago. Medical history includes pulmonary hypertension, COPD, chronic O2 use, dementia (signifcant impairment), Cervical Spine Disease, Chronic narcotic use with dependency, Diabetes, Hyperlipidemia. ED assessment: fever, pneumonia. The patient doesn't have history of treatment at [facility]. ORTHOPEDIC CODER & PT ordered, currently pending assessment. CM to follow. Date Signed: 08/26/2018 03:44 PM Electronically Signed By:Janie Marroquin [facility] CM Progress Note CM Note CM Note Notes: Pt care discussed in rounds this morning. Pt has been taken care of by . Has history of dementia, recently multiple falls. Palliative Care order was placed and they scheduled with pt's to meet Tomorrow (Friday) at 1:00pm. CM submit referral to [facility] as right now the plan will likely be to a SNF in [facility]. If pt ends up going home, [facility] does have an outpatient palliative team human resources project coordinator is Renetta. PT ordered pending eval. CM to follow. Plan: TBD Date Signed: 08/27/2018 03:41 PM Electronically Signed By:CEFEIRNO Bernabe [facility] Progress Note CM Note CM Note Notes: CM, Palliaitve Care team, Caroline from [facility], and Dr. Vidal met with pt's at length to discuss care goals and options for next steps. Pt's Mechelle spoke at length of what an incredible support she has been for her over the years and how in the past five years as his dementia has progresses she has become a 24/7 caregiver without ever being able to leave the house, even to get the newspaper without him worrying. Mechelle reports she feels like "My Timoteo" has left many years ago and that her role now is primary caregiver. Team provided educaiton about choices of treatment moving forward and next steps appear to be that Pat will touch base with her primary care doctor and think about options. attempted to insert feeding tube today through his nose without success. Please see family meeting note in notes section for more detailed information. CM to continue to follow to support pt and Pat throughout hospitalization and as she faces these difficult decisions. At this time therapy is not involved. It is possible pt would SNF. They do have a son that lives in [place]. CM to follow. Plan: continue to support Pt's Mechelle. Possible revisit of choices in the next few days as pt progesses. Possible offer another family meeting if she wants. Date Signed: 08/28/2018 04:17 PM Electronically Signed By:CEFERINO Bernabe [facility] Progress Note CM Note CM Note Notes: Spoke with patient's Mechelle today who wants their PCP to weigh in on decisions being made for the patient's medical care. Dr. Gant spoke with Pat also and he will be in contact with Dr. Mims, PCP. Therapies have not been able to work with the patient due to his medical condition currently. The trajectory for patient's care is still unclear and will be evolving over the next several days. D/C plan TBD. CM will follow. Date Signed: 08/31/2018 03:06 PM Electronically Signed By:Dolly Oshea LCSW Intervention Information
== END 2018-09-02 17:49 | disposition expired | DRG 193 ==
LOC: F3E 22:05 → F2N 08-26 15:55
PROVIDERS: ADMIT Internal Medicine; ATTEND Internal Medicine
PROC: 0DH67UZ Insertion of Feeding Device into Stomach, Via Natural or Artificial Opening (ICD-10-PCS; principal; 2018-08-29)
PROC: 5A09457 Assistance with Respiratory Ventilation, 24-96 Consecutive Hours, Continuous Positive Airway Pressure (ICD-10-PCS; 2018-08-31)
DX: J18.0 Bronchopneumonia, unspecified organism (principal); I50.811 Acute right heart failure; J69.0 Pneumonitis due to inhalation of food and vomit; J96.21 Acute and chronic respiratory failure with hypoxia; A41.9 Sepsis, unspecified organism; F03.90 Unspecified dementia, unspecified severity, without behavioral disturbance, psychotic disturbance, mood disturbance, and anxiety; R29.6 Repeated falls; G93.41 Metabolic encephalopathy; Z78.1 Physical restraint status; Z66 Do not resuscitate; Z51.5 Encounter for palliative care; I27.0 Primary pulmonary hypertension; J43.9 Emphysema, unspecified; Z99.81 Dependence on supplemental oxygen; I47.1 Supraventricular tachycardia; K59.00 Constipation, unspecified; G89.29 Other chronic pain; F11.20 Opioid dependence, uncomplicated; E11.9 Type 2 diabetes mellitus without complications; Z79.4 Long term (current) use of insulin; Z79.84 Long term (current) use of oral hypoglycemic drugs; E78.5 Hyperlipidemia, unspecified; K21.9 Gastro-esophageal reflux disease without esophagitis; F32.9 Major depressive disorder, single episode, unspecified; Z98.1 Arthrodesis status; Z85.820 Personal history of malignant melanoma of skin
CPT/HCPCS: 84484-ER; 92526-GN; 92610-GN; 96365; J0456; J0696; J1071; J1170; J1335; J1630; J1650; J1815; J1940; J2060; J2185; J2250; J2270; J3370; J7608